=== PATIENT | female | born 1985 | race Caucasian/White ===

== ENCOUNTER → 2018-02-14 10:47 | Outpatient (CLI) | payer MEDICAID, SELFPAY ==
[2018-02-14 11:59] LABS: hCG Titer Quant., Serum 13473 mIU/mL (<9 non-preg)
== END ==
PROVIDERS: Referring Provider Obstetrics & Gynecology; Visit Provider Obstetrics & Gynecology
DX: N92.6 Irregular menstruation, unspecified (principal)
CPT/HCPCS: 36415; 84702

== ENCOUNTER → 2018-02-19 14:21 | Outpatient (CLI) | payer MEDICAID, SELFPAY ==
[2018-02-19 16:47] LABS: hCG Titer Quant., Serum 29822 mIU/mL (<9 non-preg)
--- OUTSIDE RECORDS SUMMARY | 2018-04-03 12:12 | XMS RPT_ITS ---
:1985 Author Organization OHIP Care Team Providers Name Role Phone Erma Delgado Attending Unavailable Erma Delgado Referring Unavailable Primay Care Physicia, No Primary Care Unavailable Erma Delgado Attending Unavailable Erma Delgado Referring Unavailable Primay Care Physicia, No Primary Care Unavailable Erma Delgado Attending Unavailable Primay Care Physicia, No Referring Unavailable Erma Delgado Attending Unavailable Erma Delgado Referring Unavailable Primay Care Physicia, No Primary Care Unavailable PROBLEMS PROBLEMS DATE TYPE CONDITION / CODE ATTENDING STATUS SOURCE 03/02/2018 Unknown Z34.90 - Sandy, Active [place] Encounter for [facility] normal , Repository unspecified, unspecified trimester / Z34.90(ICD-10) 03/02/2018 Unknown Z12.4 - Encounter Sandy, Active [place] for screening for [facility] neoplasm of Repository cervix / Z12.4(ICD-10) 03/02/2018 Unknown Z3A.08 - 8 weeks Sandy, Active [place] gestation of [facility] / Hospital Z3A.08(ICD-10) Repository 03/02/2018 Unknown Z34.81 - Navneetanthxander, Active [place] Encounter for [facility] supervision of Hospital other normal Repository , first trimester / Z34.81(ICD-10) 03/07/2018 Unknown N92.6 - Irregular Marcanthony, Active [place] menstruation, [facility] unspecified / Hospital N92.6(ICD-10) Repository PROCEDURES PROCEDURES No Procedure Records FoundRESULTS RESULTS CBC W/DIFF, AUTOMATED Collected: 03/02/2018 Status: F Source: [place] 1:32 PM [facility] REPOSITORY TYPE CODE TESTS RESULT OUT OF RANGE REFERENCE UNITS LAB L100.1000 4.4-11.0 K/mm3 Normal WBC 8.9 LAB L100.1200 4.2-5.4 M/mm3 Normal RBC 4.32 LAB L100.1300 12.0-15.0 g/dl Normal HGB 13.2 LAB L100.1400 37-47 % Normal HCT 38.6 LAB L100.1500 81-99 fL Normal MCV 89.4 LAB L100.1600 27.0-32.0 pg Normal MCH 30.6 LAB L100.1700 32-36 g/gl Normal MCHC 34.2 LAB L100.1810 11.6-14.6 % Normal RDW CV 11.8 LAB L100.1820 35.1-43.9 fl Normal RDW SD 38.6 LAB L100.1900 150-450 K/mm3 Normal PLT 226 LAB L100.2000 6.2-12.0 fl Normal MPV 10.0 LAB L100.2100 47-70 % High NEUT% 72.8 LAB L100.2200 19-41 % Normal LY% 19.1 LAB L100.2300 0-10 % Normal MONO% 6.7 LAB L100.2400 0-5 % Normal EO% 1.2 LAB L100.2500 0-1 % Normal BASO% 0.1 LAB L100.2550 0.0-0.9 % Normal IM GRAN % 0.100 Result Comment: IG% - Immature Granulocytes (promyelocytes, myelocytes and metamyelocytes) > 1% indicates that a LEFT SHIFT is Present. LAB L100.2620 2.0-7.7 X10 3/uL Normal Absolute Neut 6.5 LAB L100.2720 0.83-4.51 X10 3/ul Normal Absolute Lymph 1.70 Performed By: #### L100.0100 #### [facility] [address] [facility] [place], [address] TYPE AND SCREEN Collected: 03/02/2018 Status: F Source: [place] 1:32 PM [facility] REPOSITORY Order Comment: Reason for Type AND Screen/Red Cells: TYPE CODE TESTS RESULT OUT OF RANGE REFERENCE UNITS LAB B10.0800 A Normal BLOOD TYPE GEL POSITIVE LAB B100.4000 Normal Antibody NEGATIVE Screen Performed By: #### B101.7450 #### [facility] [address] [place], [address] RUBELLA IGG Collected: 03/02/2018 Status: F Source: [place] 1:32 PM [facility] REPOSITORY TYPE CODE TESTS RESULT OUT OF RANGE REFERENCE UNITS LAB L509.4000 IU/mL Normal Rubella IgG 14.3 Result Comment: Antibody results Interpretation of Immune Status < 5 IU/ml Presumed Non-immune 5 - < 10 IU/ml Equivocal > or = 10 IU/ml Presumed Immune Performed By: #### L509.4000, L3890.6005 #### [facility] [facility] [facility] [place], [address] HIV - [facility] Collected: 03/02/2018 Status: F Source: [place] 1:32 PM [facility] REPOSITORY TYPE CODE TESTS RESULT OUT OF RANGE REFERENCE UNITS LAB L3890.6005 Nonreactive Normal HIV - [facility] Non-Reactive Performed By: #### L509.4000, L3890.6005 #### [facility] [address] [facility] [facility] [place], [place], [id number] HEPATITIS B SURFACE Collected: 03/02/2018 Status: F Source: [place] AG 1:32 PM [facility] REPOSITORY TYPE CODE TESTS RESULT OUT OF RANGE REFERENCE UNITS LAB L3100.0400 Negative Normal HB Negative SURF AG Result Comment: Performed at: [address] [id number] Economics Consultant: Estevan Lopez PhD, Phone: [phone] Performed By: #### L3100.0390 #### [facility] (refer to report for specific site) refer to report for address and phone number RAPID PLASMIN REAGIN Collected: 03/02/2018 Status: F Source: ER[place] (RPR) 1:32 PM [facility] REPOSITORY TYPE CODE TESTS RESULT OUT OF REFERENCE UNITS RANGE LAB L700.5000 NONREACTIVE NONREACTIVE Normal RPR Performed By: #### L700.5000 #### [facility] [address] [place], [address] PROPERTY ADMINISTRATOR OFFICE VISIT Observed: 03/02/2018 Status: F Source: [place] REPORT 1:21 PM [facility] REPOSITORY [facility] Emergency Department 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 Required: No Is patient in pain?: No Allergies No Known Allergies Allergy (Verified 03/02/18 12:26) Medications loratadine 10 mg tablet 10 mg PO DAILY 03/02/18 [History Confirmed 03/02/18] vitamin,calcium,agabqoqb-mwpz-fgkme acid tablet 1 tab PO DAILY 03/02/18 [History Confirmed 03/02/18] valacyclovir 500 mg tablet 500 mg PO DAILY 03/02/18 [History Confirmed 03/02/18] Last Menstral Period: 01/01/18 Zika: Zika virus screening: Negative : No PFSH PFSH Social History number of children: 3 current occupational status: unemployed Smoking Status: Current some day smoker alcohol intake: never substance use type: does not use seatbelt use: always do you feel safe at home: Yes additional social history: [employer] H AND P Pregancy History 4 Elective abortions Hx Para 3 Spontaneous abortions Past Pregnancies Del. DatName GA/WeeksOutcome Route [facility] LgAnesthePAel LocaProviderFOB e ht en th ia tn 05/07/07Nia live birNSVD Female epidural th - ful l term HPI NOB-LMP unknown: Details: BAN GOMEZ is a 33 year old who presents for New OB visit. OB Visit Comments: crl 1.8 cm consistent with LMP fht 160 Menstrual History Last Menstral Period: 01/01/18 Reported LMP: definite Normal amount/duration: Yes On hormonal BC at conception: No Antepartum Record Genetic Screening: Congenital Heart Defect: Other, Neural Tube Defect: Other, Hemoglobinopathy Or Carrier: Other, Cystic Fibrosis: Other, Chromosome Abnormality: Other, Kilo-Sachs: Other, Hemophilia: Other, Intellectual Disability/Autism: Other, Recurrent Loss/Stillbirth: Other, Other Structural Defect: Other, Other Genetic Disease: Other, Maternal Metabolic Disorder: Other Infection History: Live with someone with TB or Exposed to TB: No, Patient or Partner has history of Genital Herpes: No, Rash or Viral illness since last mentrual period: No, Prior GBS-Infected child: No, History of STD: No, HIV Infection: No, History of Hepatitis: No, Recent travel outside of [place]: No, Concern for Hep exposure: No, Varicella immune: Yes Medical History Medical History: Positive: Depression/ depression (mild meds- took with the first two), Negative: Diabetes, Hypertension, Heart disease, Auto- immune disorder, Kidney disease/UTI, Neurologic/epilepsy, Psychiatric, Hepatitis/liver disease, Varicosities/phlebitis, Thyroid dysfunction, Trauma/domestic violence, History of blood transfusions, D (Rh) Sensitized, Pulmonary (e.g.,TB,Asthma), Seasonal allergies, Drug/latex allergies/reactions, Breast, Potato Chip Processing Supervisor surgery, Operations/hospitalizations, Anesthetic complications, History of abnormal pap, Uterine anomaly/marva, Infertility, Anti-retroviral treatment, Relevant family history, Other ACOG First Trimester First Trimester: Desire for , Alcohol, Tobacco Cessation, Illicit/Recreational Drug/Substance Use, Intimate Partner Violence, Barriers to care, Unstable Housing, Communication Barriers, Environmental/Work Hazards, Anticipated Course of Care, Nurtrition and weight gain, Toxoplasmosis Precations, Use of Any medications, Sexual activity, Exercise, Dental Care, Sauna/Hot tub use, Seat Belt use, Childbirth classes/Hospital facilities, , Travel, Indications for US and Screening for Aneuploidy ROS Const Denies fever(s), Reports system reviewed and no additional complaints, except as docu, Reports fatigue Eyes Reports system reviewed and no additional complaints, except as docu ENT Reports system reviewed and no additional complaints, except as docu Card Denies chest pain, Denies shortness of breath Resp Reports system reviewed and no additional complaints, except as docu, Denies shortness of breath, Denies cough GI Reports nausea, Denies abdominal pain Reports system reviewed and no additional complaints, except as docu Musc Reports system reviewed and no additional complaints, except as docu Skin/Breast Reports system reviewed and no additional complaints, except as docu Neuro Yes system reviewed and no additional complaints, except as docu Psych Reports system reviewed and no additional complaints, except as docu Endo Reports fatigue, Reports system reviewed and no additional complaints, except as docu Exam Const General: healthy appearing, comfortable, no acute distress Orientation: alert [facility] Head: normal to inspection, atraumatic, normocephalic Ears: external ears normal, hearing grossly normal bilaterally Nose: nares normal, external nose normal Mouth: oral mucosae normal Teeth and gingiva: dentition normal Eyes General: appearance normal, both eyes and all related structures Neck Neck: no lymphadenopathy, supple, normal visual inspection Thyroid: thyroid normal Chest Chest palpation AND inspection: normal inspection of the chest Breast inspection: normal inspection of the breasts, normal inspection of the axillae Breast palpation: normal palpation of the breasts, normal palpation of the axillae Resp Effort AND Inspection: normal respiratory effort GI Inspection: normal to inspection Palpation: soft, no hepatosplenomegaly General: bladder normal to palpation External Female Exam: normal external appearance, normal appearance of the urethra Urethra: normal appearance of the urethra Speculum Exam - Vagina: normal appearance of the vagina, normal vaginal discharge Speculum Exam - Cervix: normal appearance of the cervix Bimanual Exam- Vagina AND Uterus: bladder normal to palpation, normal bimanual exam, uterus non-tender, other Bimanual Exam- Adnexa, other: adnexae non-tender Skin General: no rashes or lesions noted Neuro Motor: muscle tone normal throughout, no movement abnormalities noted Extrem General: normal to inspection, full ROM Assessment AND Plan Problems 1. 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 2. Encounter for supervision of other normal in first trimester Z34.81 KALLIE 10/08/18 Mary Estrella, Oren Rell 3. Pt. goes by Ashutosh Christianson Patient oriented to practice and discussed care expectations and screenings. ACOG book offered to patient. Discussed routine and specially indicated labs if needed- patient consents to testing. see problem list details for plan information. Optional screening including carrier screenings, neural tube defect screening, sequential screening, and NIPT screening offered to patient and patient chose: declined Orders Orders: Supplemental Info ACOG book given and patient encouraged to read about nutrition, exercise, weight gain, and food avoidance in . Coding Level of Care Code OB Routine Diagnoses 8 weeks gestation of Z3A.08 Weeks of gestation: 8 weeks Encounter for supervision of other normal in first trimester Z34.81 Normal : other normal Trimester: first trimester Pt. goes by Ashutosh 03/02/18 1321 <Electronically signed by Erma Delgado MD> Date Erma Delgado MD Cosigner Signature: Date (if applicable) CC: CT/NG WCH BY PCR Collected: 03/02/2018 Status: F Source: ER[place] 12:00 PM [facility] REPOSITORY TYPE CODE TESTS RESULT OUT OF RANGE REFERENCE UNITS LAB L8200.2100 Negative Normal Chlam Negative Trac PCR LAB L8200.2200 Negative Normal NG by Negative PCR Performed By: #### L8200.2000 #### [facility] [address] [place], [address] Observed: 03/02/2018 Status: F Source: ERICK CULTURE, URINE 12:00 PM [facility] REPOSITORY Urine Culture Below infection level. ORGANISM 1: Mixed Gram Positive Organisms Badger Count 1000-10,000 Performed By: #### M100.0650 #### [facility] [address] [place], [address] PAP IG HPV APTIMA Collected: 03/02/2018 Status: F Source: ERICK 16/18,45 12:00 PM [facility] REPOSITORY Order Comment: CYTOLOGY INFORMATION: - CLINICAL INFORMATION: ANNUAL - DATE LMP/MENOPAUSE: N/A - COLLECTION VIAL: Thin Prep Vial - DIRECTOR WORKFORCE MANAGEMENT SOURCE: CERVICAL - COLLECTION TECHNIQUE: CX BROOM ONLY Specimen Comment: [id number] Specimen Comment: No. of containers..01 ThinPrep Vial TYPE CODE TESTS RESULT OUT OF RANGE REFERENCE UNITS LAB L7400.0800 . Normal DIAGN Comment Result Comment: NEGATIVE FOR INTRAEPITHELIAL LESION AND MALIGNANCY. THIS SPECIMEN WAS RESCREENED PART OF OUR TAPERING MACHINE OPERATOR PROGRAM. LAB L7400.0900 . Normal ADEQ Comment Result Comment: Satisfactory for evaluation. No endocervical component is identified. LAB L7400.1400 . Normal PERFORM Comment Result Comment: Luda Dang, Supervisor Reclamation (ASCP) LAB L7400.1500 . Normal QC Comment REV Result Comment: Leslee Finch, Supervisory Supervisor Reclamation (ASCP) LAB L7400.2575 . Normal TEST METHOD Comment Result Comment: This liquid based ThinPrep(R) pap test was screened with the use of an image guided system. LAB L7400.2600 . Normal . COMM LAB L7400.2700 . Normal PAPSMR Comment Result Comment: The Pap smear is a screening test designed to aid in the detection of premalignant and malignant conditions of the uterine cervix. It is not a diagnostic procedure and should not be used as the sole means of detecting cervical cancer. Both false-positive and false-negative reports do occur. LAB L7400.2760 Negative Normal HPV APTIMA, Negative HR Result Comment: This test detects fourteen high-risk HPV types (16/18/31/33/35/39/45/ 51/52/56/58/59/66/68) without differentiation. Performed at: [address] [id number] Economics Consultant: Jenn Prabhakar MD, Phone: [phone] Performed at: = - [facility] [address] [id number] Economics Consultant: Jenn Prabhakar MD, Phone: [phone] Performed By: #### L7400.0280 #### [facility] (refer to report for specific site) refer to report for address and phone number HCG TITER QUANT., Collected: 02/19/2018 Status: F Source: [place] SERUM 3:35 PM [facility] REPOSITORY TYPE CODE TESTS RESULT OUT OF RANGE REFERENCE UNITS LAB L700.8000 <9 non-preg mIU/mL High HCG 31979 QUANT. Performed By: #### L700.8000 #### [facility] [address] [place], [place], [address] HCG TITER QUANT., Collected: 2018 Status: F Source: [place] SERUM 10:53 AM [facility] REPOSITORY TYPE CODE TESTS RESULT OUT OF RANGE REFERENCE UNITS LAB L700.8000 <9 non-preg mIU/mL High HCG 37783 QUANT. Performed By: #### L700.8000 #### [facility] [address] [place], [place], [address] OBSOLETE Observed: 01/04/2018 Status: COMPLETED Source: [place] 12:00 AM [facility] REPOSITORY Refill (NOLVIABGRN) BAN GOMEZ ([id number]) 1985 F MYA Date Time Provider Department 01/04/18 JB MURRAY (GA) QIAN During your visit today, we recorded the following information about you: Allergies As of Date: 01/04/2018 Noted Allergy Reaction PENICILLIN 05/09/2016 8 - GI Upset Date Reviewed: 02/02/2017 Reviewed by: Shelia Estrella Ma - Fully Assessed Reason for Visit: Refill Request [94] Prescriptions as of 01/04/2018 Sig: VALACYCLOVIR 500 MG TABLET TAKE 1 TABLET BY MOUTH ONCE D* BREAST PUMP Dispense 1 dual electric kimi* PNV #[id number]* Take 1 tablet by mouth once d* VALACYCLOVIR 500 MG TABLET Take 500 mg by mouth once iggy* Problem List As Of Date 01/04/2018 Noted Resolved Supervision of repeat term [Z34.90] INVALID FOR* care, subsequent [Z34.80] INVALID FOR* Encounter Status:Closed by VALENTINO HO RN on 01/04/18 OFFICE VISIT (URGENT Observed: 11/12/2017 Status: UNK Source: [facility]) 1:43 PM [facility]OSPITALS REPOSITORY Chief Complaint Rash History of Present Illness 32-year-old female presents for evaluation of poison zbigniew reaction all over. Patient states that she has had the rash for the last 5 days. It continues to spread. She hasn't on her arms as well as her le gs. States it is very itchy. Denies any fever or chills. She does state that she is breast-feeding a 1-year-old intermittently. ROS: 7 body systems reviewed and otherwise negative unless dictated in the history of present illness. Review of Systems Constitutional: as noted in HPI. Active Problems Benign essential hypertension (401.1) (I10) Past Medical History History of Acute sinusitis (461.9) (J01.90) History of Acute upper respiratory infection (465.9) (J06.9) History of Contact dermatitis due to poison zbigniew (692.6) (L23.7) History of Encounter for gynecological examination without abnormal finding (V72.31) (Z01.419) 2007 History Of 1 Previous Pregnancies (V61.5) 1 live History of allergic rhinitis (V12.69) (Z87.09) History of fatigue (V13.89) (Z87.898) History of headache (V13.89) (Z87.898) History of hypertension (V12.59) (Z86.79) well controlled History of sprain of ankle (V13.59) (Z87.828) Surgical History Denied: History of Surgery Family History Family history of Hypertension (V17.49) Family history of Hypertension (V17.49) Social History Alcohol Use (History) 1-2 per week Caffeine Use 1-2 per day Marital History - Currently Smoker, current status unknown (305.1) (F17.200) social 1 per day Allergies Penicillins Abdominal pain; Vomiting; Recorded By: Deshawn Mejia; 02/03/2012 11:56:51 AM Current Meds Yue 0.35 MG Oral Tablet; Therapy: 30Jun2017 to Recorded Dispense: 28 Days ; #:28 TABS; Refill: 0; TWYLA = N; Record; Last Updated By: Juli Izaguirre; 11/12/2017 1:22:27 PM Cetirizine HCl - 10 MG Oral Tablet; Therapy: 25Aug2017 to Recorded Dispense: 30 Days ; #:30 TABS; Refill: 0; TWYLA = N; Record; Last Updated By: Juli Izaguirre; 11/12/2017 1:22:27 PM Fluconazole 150 MG Oral Tablet; Therapy: 30Jul2017 to Recorded Dispense: 1 Days ; #:1 TABS; Refill: 0; TWYLA = N; Record; Last Updated By: Juli Izaguirre; 11/12/2017 1:22:27 PM Fluticasone Propionate 50 MCG/ACT Nasal Suspension; Therapy: 25Aug2017 to Recorded Dispense: 30 Days ; #:16 SUSP; Refill: 0; TWYLA = N; Record; Last Updated By: Juli Izaguirre; 11/12/2017 1:22:27 PM ValACYclovir HCl - 500 MG Oral Tablet; Therapy: 02Jul2017 to Recorded Dispense: 30 Days ; #:30 TABS; Refill: 0; TWYLA = N; Record; Last Updated By: Juli Izaguirre; 11/12/2017 1:22:27 PM Vitals Vital Signs Recorded: 35Eon4326 12:44PM Yczytdkmmdi48.3 F Heart Rate64 Uknsbkoxywe59 Tcvkxkgr580 Vcysfvtls18 Height5 ft 6 in Miaqtu872 lb BMI Ocsrahclaa33.86 BSA Calculated1.93 O2 Uuvczkebvo34 Pain Scale2 Physical Exam Constitutional: vital signs reviewed. Well developed, well nourished. patient alert and patient without distress. Gen: Alert and oriented, not acutely ill or toxic appearing HEENT: Head is NC and AT. No facial asymmetry.Voice clear Neck: supple Heart: regular rate and rhythm without murmur Lungs: clear to auscultation and respirations are unlabored Skin: Multiple maculopapular lesions over the arms and legs and neck. Small vesicles noted. No necrosis, petechiae, abscess or streaking present. Neuro: ambulatory without assist. Mentation clear. Answering questions quickly and appropriately. Diagnoses/Problems Allergic contact dermatitis, unspecified trigger (692.9) (L23.9) Orders Allergic contact dermatitis, unspecified trigger Start: PredniSONE 10 MG Oral Tablet; TAKE 4 TABLET Daily begin 4 tabs QD x3 days, then 3 tabs QDx 3d, then 2 tabs QD x 3d, then 1 tab QD x 3d, then 1/2 tab QD x 3days Rx By: Juli Izaguirre; Dispense: 15 Days ; #:32 Tablet; Refill: 0;For: Allergic contact dermatitis, unspecified trigger; TWYLA = N; Verified Transmission to [id number]; Last Updated By: Definition 6; 11/12/2017 1:24:08 PM Provider Impressions 32-year-old female with a rash consistent with poison zbigniew. No evidence of secondary bacterial infection. No contraindication to steroid. Oral prednisone taper recommended. Instructions for use reviewed. Patient Discussion/Summary Today you were seen by Dr Izaguirre Please see your primary care physician in 3 days. Begin oral prednisone and take with food. May use topical hydrocortisone or calamine lotion if needed. May use jxpg-cav-rwzquyr Benadryl and/or a nonsedating antihistamine per package instructions if needed. Please monitor for signs of secondary infection, such as increasing redness, fever, drainage. If present, please be reevaluated. If at any time you develop chest pain, shortness of breath or difficulty swallowing or talking..... Please go to the nearest emergency department for evaluation. End of Encounter Meds Yue 0.35 MG Oral Tablet; Therapy: 30Jun2017 to Recorded Cetirizine HCl - 10 MG Oral Tablet; Therapy: 25Aug2017 to Recorded Fluconazole 150 MG Oral Tablet; Therapy: 30Jul2017 to Recorded Fluticasone Propionate 50 MCG/ACT Nasal Suspension; Therapy: 25Aug2017 to Recorded PredniSONE 10 MG Oral Tablet; TAKE 4 TABLET Daily begin 4 tabs QD x3 days, then 3 tabs QDx 3d, then 2 tabs QD x 3d, then 1 tab QD x 3d, then 1/2 tab QD x 3days; Therapy: 66Ohi5281 to (Complete:27Nov2017) Requested for: 32Hqt4584; Last Rx:[id number] Ordered ValACYclovir HCl - 500 MG Oral Tablet; Therapy: 02Jul2017 to Recorded Signatures Electronically signed by : Juli Izaguirre DO; Nov 12 2017 1:43PM EST (Author) ALLERGIES ALLERGIES DATE TYPE / CODE NAME / CODE REACTION SEVERITY SOURCE 03/02/2018 Drug No Known Unknown [facility] [facility] Allergy/4160 Allergies/F00 Hospital 92236(SNOMED [id number](RXNOR Repository CT) M) ENCOUNTERS ENCOUNTERS ADMIT/DISCHARGE ACCOUNT ADMITTING ENCOUNTER LOCATION SOURCE NUMBER CLASS 03/02/2018 [id number] Ambulatory [place] [facility] ing:LAB Repository 03/02/2018/ [id number] Ambulatory BMSBuilding:B [place] 8 2 [facility] Hospital Repository 02/19/2018 [id number] Ambulatory [place] 8 [facility] ing:LAB Repository 2018 [id number] Ambulatory [place] 6 [facility] ing:LAB Repository PAYERS PAYERS ENCOUNTER GUARANTOR PAYER SUBSCRIBER SOURCE 03/02/2018 BAN [place]e Primary BAN Rowe [place] [id number] Insurance[facility]P [facility] [place]: [id number] [id number] Repository [address]Ugh: [phone]) Date:2018-03-02P O [phone] () [address]ATTN: [place] [address]MQ: 03/02/2018 Secondary NOT GIVENUNK [place] Insurance:SELF PAY [facility] Number: Effective Repository Date:2018-03-02 03/02/2018 BAN Rowe Primary BAN Rowe [place] [id number] [facility] Number: [id number] [id number] Repository [address]Tfo: ([phone]) Date:2018-02-20P O [phone] () [address]ATTN: [place] [address]QS: 03/02/2018 Secondary NOT GIVENUNK [place] Insurance:SELF [facility] Hospital Number: Effective Repository Date:2018-03-02 02/19/2018 BAN LEMA Primary BAN Suarez [id number] Insurance:CARESOURCEP SULLIVANDOB: Community [address] Number: [id number] [id number] Repository [address]Mgf: [phone]) Date:2018-02-16P O [phone] () [address]ATTN: [place] [address]BT: 02/19/2018 Secondary NOT GIVENUNK Erick Insurance:SELF PAY [facility] Number: Effective Repository Date:2018-02-16 2018 BAN LEMA Primary BAN ASHUTOSH Suarez [id number] Insurance:CARESOURCEP SULLIVANDOB: Community [address] Number: [id number], [place] [id number] Repository [address]Zcu: [phone]) Date:2018-02-13P O [phone] () [address]ATTN: [place] [address]DS: 2018 Secondary NOT GIVENUNK Erick Insurance:SELF PAY [facility] Number: Effective Repository Date:2018-02-13
== END ==
PROVIDERS: Nurse Practitioner Women's Health; Referring Provider Obstetrics & Gynecology; Visit Provider Obstetrics & Gynecology
DX: Z34.90 Encounter for supervision of normal pregnancy, unspecified, unspecified trimester (principal)
CPT/HCPCS: 36415; 84702

== ENCOUNTER → 2018-03-02 13:24 | Outpatient (CLI) | payer MEDICAID, SELFPAY ==
[2018-03-02 12:23] VITALS: BMI 31.6
[2018-03-02 14:09] LABS: Absolute Neutrophil Count 6.5 X10^3/uL (2.0-7.7); Basophil# 0.01 X10^3/uL; Basophil% 0.1 % (0-1); Eosinophil# 0.11 X10^3/uL; Eosinophils% 1.2 % (0-5); Hematocrit 38.6 % (37-47); Hemoglobin 13.2 g/dl (12.0-15.0); Lymphocyte % 19.1 % (19-41); Mean Corp Hgb Conc 34.2 g/gl (32-36); Mean Corpuscular Hgb 30.6 pg (27.0-32.0); Mean Corpuscular Volume 89.4 fL (81-99); Monocyte% 6.7 % (0-10); Neutrophil # 6.47 X10^3/uL (2.7-7.7); Neutrophil % 72.8 % (47-70); Platelet Count 226 K/mm3 (150-450); RBC Distribution Width CV 11.8 % (11.6-14.6); RBC Distribution Width SD 38.6 fl (35.1-43.9); Red Blood Count 4.32 M/mm3 (4.2-5.4); White Blood Count 8.9 K/mm3 (4.4-11.0)
[2018-03-02 14:10] LABS: POSITIVE COUNT NO; POSITIVE DIFFERENTIAL NO; POSITIVE MORPHOLOGY NO
[2018-03-02 16:57] LABS: HIV - WCH Non-Reactive (Nonreactive); Rubella IgG 14.3 IU/mL
[2018-03-02 19:55] LABS: Chlamydia Trachomatis by PCR Negative (Negative); Neisserai gonorrhoeae by PCR Negative (Negative); Probe Check PASS; Sample Adequacy Control PASS; Specimen Processing Control PASS
[2018-03-04 09:56] LABS: HEPATITIS B SURFACE AG Negative (Negative)
[2018-03-08 07:37] LABS: HPV APTIMA, High Risk Negative (Negative)
[2018-03-09 04:53] LABS: Rapid Plasmin Reagin (RPR) NONREACTIVE (NONREACTIVE)
== END ==
PROVIDERS: Referring Provider Obstetrics & Gynecology; Visit Provider Obstetrics & Gynecology
DX: Z34.90 Encounter for supervision of normal pregnancy, unspecified, unspecified trimester (principal); Z12.4 Encounter for screening for malignant neoplasm of cervix
CPT/HCPCS: 36415; 85025; 86592; 86703; 86762; 86850; 86900; 87086; 87088; 87340; 87491; 87591; 87624; 88175; G0145

== ENCOUNTER → 2018-05-03 15:50 | Outpatient (CLI) | payer MEDICAID, SELFPAY ==
[2018-05-03 10:12] VITALS: BMI 31.6
[2018-05-03 16:45] LABS: Protein, Urine (Random) 14.2 mg/dL (<11.9); Protein:Creat Ratio 53 mg/g CRE (0-200)
== END ==
PROVIDERS: Referring Provider Nurse Practitioner Women's Health; Visit Provider Nurse Practitioner Women's Health
DX: O16.2 Unspecified maternal hypertension, second trimester (principal); Z3A.00 Weeks of gestation of pregnancy not specified
CPT/HCPCS: 82570; 84156

== ENCOUNTER → 2018-05-15 11:48 | Outpatient (CLI) | payer MEDICAID, SELFPAY ==
[2018-05-15 11:38] VITALS: BMI 32.8
[2018-05-15 12:21] LABS: Protein, Urine (Random) 9.5 mg/dL (<11.9); Protein:Creat Ratio 76 mg/g CRE (0-200)
[2018-05-15 12:44] LABS: Absolute Lymphocyte Count 1.39 X10^3/ul (0.83-4.51); Absolute Neutrophil Count 6.6 X10^3/uL (2.0-7.7); Basophil# 0.01 X10^3/uL; Basophil% 0.1 % (0-1); Eosinophil# 0.06 X10^3/uL; Eosinophils% 0.7 % (0-5); Hematocrit 36.8 % (37-47); Hemoglobin 12.6 g/dl (12.0-15.0); Lymphocyte # 1.39 X10^3/ul (4.0); Mean Corp Hgb Conc 34.2 g/gl (32-36); Mean Corpuscular Hgb 31.3 pg (27.0-32.0); Mean Corpuscular Volume 91.5 fL (81-99); Mean Platelet Vol. 10.6 fl (6.2-12.0); Monocyte# 0.62 X10^3/uL; Monocyte% 7.1 % (0-10); Neutrophil % 75.8 % (47-70); Platelet Count 162 K/mm3 (150-450); RBC Distribution Width SD 42.6 fl (35.1-43.9); Red Blood Count 4.02 M/mm3 (4.2-5.4); White Blood Count 8.7 K/mm3 (4.4-11.0)
[2018-05-15 12:46] LABS: POSITIVE COUNT NO; POSITIVE DIFFERENTIAL NO; POSITIVE MORPHOLOGY NO
[2018-05-15 13:20] LABS: ALB/GLOB Ratio 0.9 RATIO (0.9-2.4); AST(SGOT) 15 U/L (15-37); Alanine Aminotransfer ALT/SGPT 19 U/L (13-56); Alkaline Phosphatase 51 U/L (45-117); Anion Gap 10 (5-15); BUN 9 mg/dL (7-18); BUN/Creat Ratio 17.2 RATIO (10-20); Calcium,Total 8.5 mg/dL (8.5-10.1); Chloride 107 mmol/L (98-107); Creatinine, Serum 0.52 mg/dL (0.55-1.02); EST Glomerular Filtration Rate 142 mL/min (>60); Est Glom Filt Rate - Afr Amer 172 mL/min (>60); Globulin 3.5 g/dL (2.2-4.2); Glucose 87 mg/dL (74-106); LDH 177 U/L (84-246); Potassium 3.9 mmol/L (3.5-5.1); Protein, Total 6.5 g/dL (6.4-8.2); Sodium Level 140 mmol/L (136-145); Uric Acid 3.6 mg/dL (2.6-6.0)
== END ==
PROVIDERS: Nurse Practitioner Women's Health; Referring Provider Obstetrics & Gynecology; Visit Provider Obstetrics & Gynecology
DX: Z34.90 Encounter for supervision of normal pregnancy, unspecified, unspecified trimester (principal); O16.2 Unspecified maternal hypertension, second trimester; Z3A.00 Weeks of gestation of pregnancy not specified
CPT/HCPCS: 36415; 80053; 82570; 83615; 84156; 84550; 85025

== ENCOUNTER → 2018-07-20 | Outpatient (CLI) | payer MEDICAID, SELFPAY ==
[2018-07-20 11:03] VITALS: BMI 32.8
[2018-07-20 12:55] LABS: Absolute Lymphocyte Count 1.44 X10^3/ul (0.83-4.51); Absolute Neutrophil Count 6.5 X10^3/uL (2.0-7.7); Basophil# 0.01 X10^3/uL; Basophil% 0.1 % (0-1); Eosinophils% 1.1 % (0-5); Hematocrit 35.7 % (37-47); Hemoglobin 12.2 g/dl (12.0-15.0); Lymphocyte # 1.44 X10^3/ul (4.0); Lymphocyte % 16.3 % (19-41); Mean Corp Hgb Conc 34.2 g/gl (32-36); Mean Corpuscular Hgb 31.3 pg (27.0-32.0); Mean Corpuscular Volume 91.5 fL (81-99); Mean Platelet Vol. 10.7 fl (6.2-12.0); Monocyte# 0.73 X10^3/uL; Monocyte% 8.3 % (0-10); Neutrophil # 6.49 X10^3/uL (2.7-7.7); Neutrophil % 73.6 % (47-70); Platelet Count 161 K/mm3 (150-450); RBC Distribution Width CV 12.9 % (11.6-14.6); RBC Distribution Width SD 41.8 fl (35.1-43.9); White Blood Count 8.8 K/mm3 (4.4-11.0)
[2018-07-20 12:57] LABS: POSITIVE COUNT NO; POSITIVE DIFFERENTIAL NO; POSITIVE MORPHOLOGY NO
[2018-07-20 13:16] LABS: Glucose Challenge Gest 1H 50g 78 mg/dL (70-140)
== END | disposition home or self-care (01) ==
LOC: LAB 11:21
PROVIDERS: Nurse Practitioner Women's Health; Referring Provider Obstetrics & Gynecology; Visit Provider Obstetrics & Gynecology
DX: Z34.90 Encounter for supervision of normal pregnancy, unspecified, unspecified trimester (principal)
CPT/HCPCS: 36415; 82950; 85025; 86850; 86900

== ENCOUNTER → 2018-07-30 | Outpatient (CLI) | payer MEDICAID, SELFPAY ==
[2018-07-30 16:31] VITALS: BMI 33.5
[2018-07-30 17:21] LABS: Absolute Lymphocyte Count 0.97 X10^3/ul (0.83-4.51); Absolute Neutrophil Count 6.8 X10^3/uL (2.0-7.7); Basophil# 0.01 X10^3/uL; Basophil% 0.1 % (0-1); Eosinophil# 0.06 X10^3/uL; Eosinophils% 0.7 % (0-5); Hematocrit 36.2 % (37-47); Hemoglobin 12.5 g/dl (12.0-15.0); Lymphocyte # 0.97 X10^3/ul (4.0); Lymphocyte % 11.4 % (19-41); Mean Corp Hgb Conc 34.5 g/gl (32-36); Mean Corpuscular Hgb 31.4 pg (27.0-32.0); Mean Platelet Vol. 10.4 fl (6.2-12.0); Monocyte# 0.69 X10^3/uL; Monocyte% 8.1 % (0-10); Neutrophil # 6.78 X10^3/uL (2.7-7.7); Neutrophil % 79.5 % (47-70); POSITIVE COUNT NO; POSITIVE DIFFERENTIAL NO; POSITIVE MORPHOLOGY NO; Platelet Count 133 K/mm3 (150-450); RBC Distribution Width CV 12.9 % (11.6-14.6); RBC Distribution Width SD 42.3 fl (35.1-43.9); Red Blood Count 3.98 M/mm3 (4.2-5.4); White Blood Count 8.5 K/mm3 (4.4-11.0)
[2018-07-30 17:37] LABS: ALB/GLOB Ratio 0.9 RATIO (0.9-2.4); AST(SGOT) 16 U/L (15-37); Alanine Aminotransfer ALT/SGPT 21 U/L (13-56); Alkaline Phosphatase 72 U/L (45-117); Anion Gap 4 (5-15); BUN 6 mg/dL (7-18); BUN/Creat Ratio 11.4 RATIO (10-20); Calcium,Total 8.3 mg/dL (8.5-10.1); Chloride 107 mmol/L (98-107); Creatinine, Serum 0.52 mg/dL (0.55-1.02); EST Glomerular Filtration Rate 142 mL/min (>60); Est Glom Filt Rate - Afr Amer 171 mL/min (>60); Globulin 3.3 g/dL (2.2-4.2); Glucose 99 mg/dL (74-106); Lipase 82 U/L (73-393); Potassium 3.7 mmol/L (3.5-5.1); Protein, Total 6.3 g/dL (6.4-8.2); Sodium Level 136 mmol/L (136-145)
[2018-07-31 10:37] LABS: Protein, Urine (Random) 12.7 mg/dL (<11.9); Protein:Creat Ratio 85 mg/g CRE (0-200)
== END | disposition home or self-care (01) ==
PROVIDERS: Referring Provider Obstetrics & Gynecology; Visit Provider Obstetrics & Gynecology
DX: R10.13 Epigastric pain (principal)
CPT/HCPCS: 36415; 80053; 82570; 83690; 84156; 85025

== ENCOUNTER → 2018-07-31 | Outpatient (CLI) | payer MEDICAID, SELFPAY ==
[2018-07-30 16:31] VITALS: BMI 33.5
[2018-07-30 17:49] VITALS: BMI 32.8
--- NOTE | 2018-07-31 07:58 | US_ITS ---
STUDY: ABDOMINAL ULTRASOUND REASON FOR EXAM: Female, 33 years old. Right upper quadrant and epigastric pain. TECHNIQUE: Transabdominal ultrasound was performed with real-time and static sanchez scale imaging. TECHNICAL QUALITY: Adequate. COMPARISON: None. FINDINGS: Liver: The liver measures 16.5 cm. There is normal echogenicity of the liver. The bile ducts are within normal limits. There is hepatic color flow. The direction of portal flow is hepatopetal. There is no demonstrated mass lesion. Portal vein measurement: Gallbladder: Normal distended gallbladder. The gallbladder wall measures 2.8 mm. There is a negative sonographic Arteaga's sign. There is no pericholecystic fluid. There are no gallstones. Common Bile Duct (C.B.D.): The common bile duct measures 3.7 mm. Pancreas: Normal size of the head, body and tail of the pancreas. There is normal echogenicity of the pancreas. There is no demonstrated pancreatic mass or cyst. Spleen: There is splenomegaly. The spleen measures 13.9 cm x 5.2 cm x 4.5 cm. Right Kidney: Normal size of the right kidney. The right kidney measures 11.7 cm x 5.5 cm x 5.5 cm. Normal renal cortex. The right cortex measures 1.6 cm. There is no demonstrated renal mass or cyst. There is no right hydronephrosis. Left Kidney: Normal size of the left kidney. The left kidney measures 11.9 cm x 5.3 cm x 5.1 cm. Normal renal cortex. The left cortex measures 2.0 cm. There is no demonstrated renal mass or cyst. There is no left hydronephrosis. Aorta: Unremarkable. I.V.C.: The IVC is patent. There is no ascites. US/Abdomen Complete IMPRESSION: Mild splenomegaly. Electronically Signed: Harjit Arellano, at 15:38 EDT , Service support ,
[2018-07-31 10:37] LABS: Basophil# 0.01 X10^3/uL; Basophil% 0.1 % (0-1); Eosinophil# 0.08 X10^3/uL; Eosinophils% 1.2 % (0-5); Hematocrit 36.7 % (37-47); Hemoglobin 12.7 g/dl (12.0-15.0); Lymphocyte % 14.7 % (19-41); Mean Corp Hgb Conc 34.6 g/gl (32-36); Mean Corpuscular Hgb 31.5 pg (27.0-32.0); Mean Corpuscular Volume 91.1 fL (81-99); Mean Platelet Vol. 11.1 fl (6.2-12.0); Monocyte# 0.66 X10^3/uL; Monocyte% 9.7 % (0-10); Neutrophil # 5.02 X10^3/uL (2.7-7.7); Platelet Count 152 K/mm3 (150-450); RBC Distribution Width CV 12.8 % (11.6-14.6); RBC Distribution Width SD 41.9 fl (35.1-43.9); Red Blood Count 4.03 M/mm3 (4.2-5.4); White Blood Count 6.8 K/mm3 (4.4-11.0)
[2018-07-31 10:43] LABS: POSITIVE COUNT NO; POSITIVE DIFFERENTIAL NO; POSITIVE MORPHOLOGY NO
[2018-07-31 11:00] LABS: ALB/GLOB Ratio 0.8 RATIO (0.9-2.4); AST(SGOT) 21 U/L (15-37); Alanine Aminotransfer ALT/SGPT 24 U/L (13-56); Albumin, Serum 2.9 g/dL (3.2-5.0); Alkaline Phosphatase 71 U/L (45-117); Anion Gap 10 (5-15); BUN 7 mg/dL (7-18); BUN/Creat Ratio 11.3 RATIO (10-20); Calcium,Total 8.7 mg/dL (8.5-10.1); Chloride 106 mmol/L (98-107); Creatinine, Serum 0.62 mg/dL (0.55-1.02); EST Glomerular Filtration Rate 117 mL/min (>60); Est Glom Filt Rate - Afr Amer 142 mL/min (>60); Globulin 3.6 g/dL (2.2-4.2); Glucose 104 mg/dL (74-106); Potassium 4.2 mmol/L (3.5-5.1); Protein, Total 6.5 g/dL (6.4-8.2); Sodium Level 141 mmol/L (136-145)
== END | disposition home or self-care (01) ==
PROVIDERS: Referring Provider Obstetrics & Gynecology; Visit Provider Obstetrics & Gynecology
DX: R10.13 Epigastric pain (principal)
CPT/HCPCS: 36415; 76700; 80053; 85025

== ENCOUNTER → 2018-08-14 | Outpatient (CLI) | payer MEDICAID, SELFPAY ==
[2018-06-29 09:55] VITALS: BMI 32.8
[2018-08-03 09:43] VITALS: BMI 32.9
--- NOTE | 2018-08-14 08:04 | US_ITS ---
STUDY: SECOND AND THIRD TRIMESTER OBSTETRICAL ULTRASOUND - LIMITED REASON FOR EXAM: Female, 33 years old. Routine survey. LMP: January 01, 2018. PRIOR ULTRASOUND: None. TECHNIQUE: Transabdominal TECHNICAL QUALITY: Adequate. FINDINGS: There is a single intrauterine fetus. The fetus is in a cephalic presentation. There is demonstrated cardiac activity with a heart rate of 136 bpm. There is a normal amniotic fluid volume. The largest amniotic fluid pocket measures 4.2 cm. The amniotic fluid index (MARISELA) is 11.5 cm. The placenta is anterior in location and is not low lying. There are Grade 1 placental changes. The cervix measures 3.7 cm in length. BIOMETRY: BPD: 7.88 cm: 31 weeks, 5 days HC: 30.32 cm: 33 weeks, 5 days AC: 28.51 cm: 32 weeks, 4 days FL: 6.3 cm: 32 weeks, 5 days Age by LMP: 32 weeks, 1 days. KALLIE by LMP: October 08, 2018. age by current US: 32 weeks, 5 days. KALLIE by current US: October 04, 2018. Estimated weight: 2006 grams, +/- 293 grams, 54 percentile. US/OB Limited With Biometrics IMPRESSION: Single live intrauterine gestation with a mean gestational age of 32 weeks and 5 days. Electronically Signed: Harjit Arellano, at 14:37 EDT , Service support ,
== END | disposition home or self-care (01) ==
LOC: OPUS 08:03
PROVIDERS: PCP Internal Medicine; Referring Provider Obstetrics & Gynecology; Visit Provider Obstetrics & Gynecology
DX: O10.919 Unspecified pre-existing hypertension complicating pregnancy, unspecified trimester (principal); Z3A.00 Weeks of gestation of pregnancy not specified
CPT/HCPCS: 76816

== ENCOUNTER → 2018-08-22 | Outpatient (CLI) | payer MEDICAID, SELFPAY ==
[2018-08-17 11:27] VITALS: BMI 33.5
--- NOTE | 2018-08-22 13:54 | US_ITS ---
STUDY: SECOND AND THIRD TRIMESTER OBSTETRICAL ULTRASOUND - LIMITED REASON FOR EXAM: Female, 33 years old. Weekly amniotic fluid follow up. Hypertension. LMP: January 01, 2018. PRIOR ULTRASOUND: Comparison is made with prior study dated August 14, 2018. TECHNIQUE: Transabdominal TECHNICAL QUALITY: Adequate. FINDINGS: There is a single intrauterine fetus. The fetus is in a cephalic presentation. There is demonstrated cardiac activity with a heart rate of 126 bpm. There is a normal amniotic fluid volume. The largest amniotic fluid pocket measures 6.2 cm. The amniotic fluid index (MARISELA) is 14.5 cm. The placenta is anterior in location and is not low lying. There are Grade 1 placental changes. The cervix measures 3.9 cm in length. Age by LMP: 33 weeks, 2 days. KALLIE by LMP: October 08, 2018. age by prior US: 33 weeks, 6 days. KALLIE by prior US: October 04, 2018. IMPRESSION: Normal amniotic fluid. Electronically Signed: Harjit Arellano, at 15:35 EDT , Service support , STUDY: OBSTETRICAL ULTRASOUND - BIOPHYSICAL PROFILE REASON FOR EXAM: Female, 33 years old. Hypertension. LMP: January 01, 2018. PRIOR ULTRASOUND: Comparison is made with prior sonogram dated August 14, 2018 TECHNIQUE: Transabdominal TECHNICAL QUALITY: Adequate. FINDINGS: There is a single intrauterine fetus. The fetus is in a cephalic presentation. There is demonstrated cardiac activity with a heart rate of 126 bpm. There is a normal amniotic fluid volume. The largest amniotic fluid pocket measures 6.2 cm. The amniotic fluid index (MARISELA) is 14.5 cm. The placenta is anterior in location and is not low lying. There are Grade 1 placental changes. BIOPHYSICAL PROFILE: Breathing Movements (FBM): 2 Gross Body Movements (GBM): 2 Tone (FT): 2 Amniotic Fluid Volume (AFV): 2 TOTAL SCORE: US/OB Limited (No Biometrics) IMPRESSION: Normal biophysical profile of 11/01. Electronically Signed: Harjit Arellano, at 15:36 EDT , Service support ,
== END | disposition home or self-care (01) ==
LOC: OPUS 13:52
PROVIDERS: Referring Provider Obstetrics & Gynecology; Visit Provider Obstetrics & Gynecology
DX: O10.919 Unspecified pre-existing hypertension complicating pregnancy, unspecified trimester (principal); Z3A.00 Weeks of gestation of pregnancy not specified
CPT/HCPCS: 76815; 76819

== ENCOUNTER → 2018-08-27 | Outpatient (CLI) | payer MEDICAID, SELFPAY ==
[2018-08-17 11:27] VITALS: BMI 33.5
--- NOTE | 2018-08-27 16:02 | US_ITS ---
STUDY: SECOND AND THIRD TRIMESTER OBSTETRICAL ULTRASOUND - LIMITED REASON FOR EXAM: Female, 33 years old. Evaluate MARISELA LMP: Unknown. PRIOR ULTRASOUND: 08/22/2018 TECHNIQUE: Transabdominal TECHNICAL QUALITY: Adequate. FINDINGS: There is a single intrauterine fetus. The fetus is in a cephalic presentation. There is demonstrated cardiac activity with a heart rate of 142 bpm. There is a normal amniotic fluid volume. The largest amniotic fluid pocket measures 2.9 x 3.9 cm. The amniotic fluid index (MARISELA) is 13.9 cm. The placenta is anterior in location and is not low lying. There are Grade 1 placental changes. The cervix measures 5.2 cm in length. age by LMP 34 weeks 0 days. Estimated dated delivery 10/08/2018 US/OB Limited (No Biometrics) IMPRESSION: Single viable intrauterine of approximately 34 weeks 0 days by LMP. A heart rate of 142 bpm is noted. The fetus is in cephalic presentation. The MARISELA is within normal limits, measuring 13.9 cm. Electronically Signed: Arnav Mcduffie MD at 17:55 EDT , Service support ,
--- NOTE | 2018-08-27 16:07 | US_ITS ---
STUDY: OBSTETRICAL ULTRASOUND - BIOPHYSICAL PROFILE REASON FOR EXAM: Female, 33 years old. Hypertension, evaluate for well-being LMP: 01/01/2018 PRIOR ULTRASOUND: 08/22/2018 TECHNIQUE: Transabdominal TECHNICAL QUALITY: Adequate. FINDINGS: There is a single intrauterine fetus. The fetus is in a cephalic presentation. There is demonstrated cardiac activity with a heart rate of 138 bpm. There is a normal amniotic fluid volume. The largest amniotic fluid pocket measures 5.6 cm. The amniotic fluid index (MARISELA) is 12.4 cm. Age by LMP: 34 weeks, 0 days. KALLIE by LMP: 10/08/2018. BIOPHYSICAL PROFILE: Breathing Movements (FBM): 2 Gross Body Movements (GBM): 2 Tone (FT): 2 Amniotic Fluid Volume (AFV): 2 TOTAL SCORE: US/Biophysical Profile IMPRESSION: Normal biophysical profile of 11/01. Electronically Signed: Arnav Mcduffie MD at 18:14 EDT , Service support ,
== END | disposition home or self-care (01) ==
LOC: US 16:01
PROVIDERS: Referring Provider Nurse Practitioner Women's Health; Visit Provider Nurse Practitioner Women's Health
DX: O10.919 Unspecified pre-existing hypertension complicating pregnancy, unspecified trimester (principal); Z3A.00 Weeks of gestation of pregnancy not specified
CPT/HCPCS: 76815; 76818

== ENCOUNTER → 2018-08-31 | Outpatient (CLI) | payer MEDICAID, SELFPAY ==
[2018-08-31 11:09] VITALS: BMI 33.5
[2018-08-31 11:35] LABS: Absolute Lymphocyte Count 1.09 X10^3/ul (0.83-4.51); Basophil# 0.01 X10^3/uL; Basophil% 0.1 % (0-1); Eosinophil# 0.05 X10^3/uL; Eosinophils% 0.7 % (0-5); Hematocrit 34.7 % (37-47); Hemoglobin 11.9 g/dl (12.0-15.0); Lymphocyte # 1.09 X10^3/ul (4.0); Lymphocyte % 16.2 % (19-41); Mean Corp Hgb Conc 34.3 g/gl (32-36); Mean Corpuscular Hgb 31.6 pg (27.0-32.0); Mean Corpuscular Volume 92.3 fL (81-99); Mean Platelet Vol. 10.3 fl (6.2-12.0); Monocyte% 8.9 % (0-10); Neutrophil # 4.95 X10^3/uL (2.7-7.7); Neutrophil % 73.8 % (47-70); POSITIVE COUNT NO; POSITIVE DIFFERENTIAL NO; POSITIVE MORPHOLOGY NO; Platelet Count 131 K/mm3 (150-450); RBC Distribution Width CV 13.4 % (11.6-14.6); RBC Distribution Width SD 44.5 fl (35.1-43.9); Red Blood Count 3.76 M/mm3 (4.2-5.4); White Blood Count 6.7 K/mm3 (4.4-11.0)
[2018-08-31 11:43] LABS: Protein, Urine (Random) 19.5 mg/dL (<11.9); Protein:Creat Ratio 108 mg/g CRE (0-200)
[2018-08-31 11:49] LABS: ALB/GLOB Ratio 0.8 RATIO (0.9-2.4); AST(SGOT) 14 U/L (15-37); Alanine Aminotransfer ALT/SGPT 17 U/L (13-56); Albumin, Serum 2.6 g/dL (3.2-5.0); Alkaline Phosphatase 90 U/L (45-117); Anion Gap 5 (5-15); BUN 9 mg/dL (7-18); Calcium,Total 8.2 mg/dL (8.5-10.1); Chloride 108 mmol/L (98-107); Creatinine, Serum 0.53 mg/dL (0.55-1.02); EST Glomerular Filtration Rate 140 mL/min (>60); Est Glom Filt Rate - Afr Amer 170 mL/min (>60); Globulin 3.4 g/dL (2.2-4.2); Glucose 77 mg/dL (74-106); Potassium 4.1 mmol/L (3.5-5.1); Sodium Level 137 mmol/L (136-145)
== END | disposition home or self-care (01) ==
LOC: PAVLAB 11:15
PROVIDERS: Referring Provider Nurse Practitioner Women's Health; Visit Provider Nurse Practitioner Women's Health
DX: O10.919 Unspecified pre-existing hypertension complicating pregnancy, unspecified trimester (principal); Z3A.00 Weeks of gestation of pregnancy not specified
CPT/HCPCS: 36415; 80053; 82570; 84156; 85025

== ENCOUNTER 2018-09-03 17:40 | Outpatient (CLI) | payer MEDICAID, SELFPAY ==
[2018-08-31 11:09] VITALS: BMI 33.5
[2018-09-03 19:12] LABS: Hematocrit 34.8 % (37-47); Hemoglobin 11.9 g/dl (12.0-15.0); Mean Corp Hgb Conc 34.2 g/gl (32-36); Mean Corpuscular Hgb 31.6 pg (27.0-32.0); Mean Corpuscular Volume 92.3 fL (81-99); Mean Platelet Vol. 10.5 fl (6.2-12.0); Platelet Count 148 K/mm3 (150-450); RBC Distribution Width CV 13.3 % (11.6-14.6); RBC Distribution Width SD 43.7 fl (35.1-43.9); Red Blood Count 3.77 M/mm3 (4.2-5.4); Scan Indicated on CBC? Y/N NO; White Blood Count 7.8 K/mm3 (4.4-11.0)
[2018-09-03 19:18] LABS: Partial Thromboplast Time 28.1 Seconds (24.1-36.2); Prothrombin Time (Protime)PT. 13.1 SECONDS (11.7-14.9)
[2018-09-03 19:19] VITALS: BMI 33.7
[2018-09-03 19:31] LABS: AST(SGOT) 17 U/L (15-37); Alanine Aminotransfer ALT/SGPT 18 U/L (13-56); Creatinine, Serum 0.53 mg/dL (0.55-1.02); EST Glomerular Filtration Rate 140 mL/min (>60); Est Glom Filt Rate - Afr Amer 170 mL/min (>60); Estimated Creatinine Clearance 140.01 ml/min; Uric Acid 4.3 mg/dL (2.6-6.0)
[2018-09-03 19:32] LABS: Protein, Urine (Random) 6.8 mg/dL (<11.9); Protein:Creat Ratio 264 mg/g CRE (0-200)
--- NOTE | 2018-09-09 04:31 | OB.TRI.PN ---
Progress Notes Date of Service: 09/03/18 Progress Note: Patient presents for NST secondary to 6 out of 8 BPP heart tone 130 moderate variability reactive no decelerations category 1 tracing [place]: No regular contractions Assessment and plan abnormal ultrasound with reassuring reactive NST. Overall 8 out of 10 BPP repeat BPP in 24 hours Laboratory Studies: Laboratory Tests 09/03/18 09/03/18 09/03/18 Range/Units 19:00 19:00 19:00 WBC (4.4-11.0) K/mm3 RBC (4.2-5.4) M/mm3 Hgb (12.0-15.0) g/dl Hct (37-47) % MCV (81-99) fL MCH (27.0-32.0) pg MCHC (32-36) g/gl RDW (11.6-14.6) % RDW Differential (35.1-43.9) fl Plt Count (150-450) K/mm3 MPV (6.2-12.0) fl PT 13.1 (11.7-14.9) SECONDS INR 1.0 APTT 28.1 (24.1-36.2) Seconds Creatinine 0.53 L (0.55-1.02) mg/dL Estim Creat Clear Calc 140.01 ml/min Est GFR (MDRD) Af Amer 170 (>60) mL/min Est GFR (MDRD) Non-Af 140 (>60) mL/min Uric Acid 4.3 (2.6-6.0) mg/dL AST 17 (15-37) U/L ALT 18 (13-56) U/L U Random Total Protein 6.8 (<11.9) mg/dL Urine Creatinine 25.80 (NO RANGE EST.) mg/dL Protein/Creatinin Ratio 264 H (0-200) mg/g CRE 09/03/18 Range/Units 19:00 WBC 7.8 (4.4-11.0) K/mm3 RBC 3.77 L (4.2-5.4) M/mm3 Hgb 11.9 L (12.0-15.0) g/dl Hct 34.8 L (37-47) % MCV 92.3 (81-99) fL MCH 31.6 (27.0-32.0) pg MCHC 34.2 (32-36) g/gl RDW 13.3 (11.6-14.6) % RDW Differential 43.7 (35.1-43.9) fl Plt Count 148 L (150-450) K/mm3 MPV 10.5 (6.2-12.0) fl PT (11.7-14.9) SECONDS INR APTT (24.1-36.2) Seconds Creatinine (0.55-1.02) mg/dL Estim Creat Clear Calc ml/min Est GFR (MDRD) Af Amer (>60) mL/min Est GFR (MDRD) Non-Af (>60) mL/min Uric Acid (2.6-6.0) mg/dL AST (15-37) U/L ALT (13-56) U/L U Random Total Protein (<11.9) mg/dL Urine Creatinine (NO RANGE EST.) mg/dL Protein/Creatinin Ratio (0-200) mg/g CRE
== END 2018-09-03 19:50 | disposition home or self-care (01) ==
LOC: WPOUT 17:47 → WP 17:47
PROVIDERS: Referring Provider Obstetrics & Gynecology; Visit Provider Obstetrics & Gynecology
DX: O28.3 Abnormal ultrasonic finding on antenatal screening of mother (principal); O10.919 Unspecified pre-existing hypertension complicating pregnancy, unspecified trimester; Z3A.00 Weeks of gestation of pregnancy not specified
CPT/HCPCS: 36415; 59025; 59050; 76815; 76819; 82565; 82570; 84156; 84450; 84460; 84550; 85027; 85610; 85730; 99218; G0378

== ENCOUNTER → 2018-09-03 | Outpatient (CLI) | payer MEDICAID, SELFPAY ==
[2018-08-17 11:27] VITALS: BMI 33.5
[2018-08-31 11:09] VITALS: BMI 33.5
--- NOTE | 2018-09-03 08:01 | US_ITS ---
STUDY: SECOND AND THIRD TRIMESTER OBSTETRICAL ULTRASOUND - LIMITED REASON FOR EXAM: Female, 33 years old. Amniotic fluid index check. Hypertension. LMP: January 01, 2018. PRIOR ULTRASOUND: Comparison is made with prior study dated August 27, 2018. TECHNIQUE: Transabdominal TECHNICAL QUALITY: Adequate. FINDINGS: There is a single intrauterine fetus. The fetus is in a cephalic presentation. There is demonstrated cardiac activity with a heart rate of 1:30 bpm. There is a normal amniotic fluid volume. The largest amniotic fluid pocket measures 2.6 cm. The amniotic fluid index (MARISELA) is 9.1 cm. The placenta is anterior in location and is not low lying. There are Grade 1 placental changes. The cervix measures 3.3 cm in length. Age by LMP: 35 weeks, 0 days. KALLIE by LMP: October 08, 2018. age by prior US: 35 weeks, 4 days. KALLIE by prior US: October 04, 2018. IMPRESSION: Amniotic fluid is within normal limits. Electronically Signed: Harjit Arellano, at 15:01 EDT , Service support , STUDY: OBSTETRICAL ULTRASOUND - BIOPHYSICAL PROFILE REASON FOR EXAM: Female, 33 years old. Hypertension. LMP: January 01, 2018. PRIOR ULTRASOUND: Comparison is made with prior study dated August 27, 2018. TECHNIQUE: Transabdominal TECHNICAL QUALITY: Adequate. FINDINGS: There is a single intrauterine fetus. The fetus is in a cephalic presentation. There is demonstrated cardiac activity with a heart rate of 130 bpm. There is a normal amniotic fluid volume. The largest amniotic fluid pocket measures 2.6 cm. The amniotic fluid index (MARISELA) is 9.1 cm. The placenta is anterior in location and is not low lying. There are Grade 1 placental changes. BIOPHYSICAL PROFILE: Breathing Movements (FBM): 2 Gross Body Movements (GBM): 2 Tone (FT): 2 Amniotic Fluid Volume (AFV): 0 TOTAL SCORE: US/OB Limited (No Biometrics) IMPRESSION: Normal biophysical profile of 09/01. Electronically Signed: Harjit Arellano, at 15:03 EDT , Service support ,
== END | disposition home or self-care (01) ==
LOC: OPUS 08:00
PROVIDERS: Referring Provider Nurse Practitioner Women's Health; Visit Provider Nurse Practitioner Women's Health
DX: O10.919 Unspecified pre-existing hypertension complicating pregnancy, unspecified trimester (principal); Z3A.00 Weeks of gestation of pregnancy not specified
CPT/HCPCS: 76815; 76819

== ENCOUNTER → 2018-09-04 | Outpatient (CLI) | payer MEDICAID, SELFPAY ==
[2018-09-03 19:19] VITALS: BMI 33.7
--- NOTE | 2018-09-04 08:40 | US_ITS ---
STUDY: OBSTETRICAL ULTRASOUND - BIOPHYSICAL PROFILE REASON FOR EXAM: Female, 33 years old. well being. LMP: January 01, 2018. PRIOR ULTRASOUND: Comparison is made with prior study dated September 03, 2018. TECHNIQUE: Transabdominal TECHNICAL QUALITY: Adequate. FINDINGS: There is a single intrauterine fetus. The fetus is in a cephalic presentation. There is demonstrated cardiac activity with a heart rate of 125 bpm. There is a normal amniotic fluid volume. The largest amniotic fluid pocket measures 5.6 cm. The amniotic fluid index (MARISELA) is 13.5 cm. The placenta is anterior in location and is not low lying. There are Grade 1 placental changes. BIOPHYSICAL PROFILE: Breathing Movements (FBM): 0 Gross Body Movements (GBM): 2 Tone (FT): 2 Amniotic Fluid Volume (AFV): 2 TOTAL SCORE: US/Biophysical Profile IMPRESSION: biophysical profile of 09/01. Electronically Signed: Harjit Arellano, at 11:04 EDT , Service support ,
== END | disposition home or self-care (01) ==
LOC: US 08:39
PROVIDERS: Referring Provider Nurse Practitioner Women's Health; Visit Provider Nurse Practitioner Women's Health
DX: O99.119 Other diseases of the blood and blood-forming organs and certain disorders involving the immune mechanism complicating pregnancy, unspecified trimester (principal); D69.6 Thrombocytopenia, unspecified; Z3A.00 Weeks of gestation of pregnancy not specified
CPT/HCPCS: 76818

== ENCOUNTER → 2018-09-07 | Outpatient (CLI) | payer MEDICAID, SELFPAY ==
[2018-09-07 10:27] VITALS: BMI 33.3
[2018-09-07 11:14] LABS: Protein, Urine (Random) 19.2 mg/dL (<11.9); Protein:Creat Ratio 181 mg/g CRE (0-200)
[2018-09-07 11:40] LABS: Absolute Lymphocyte Count 1.23 X10^3/ul (0.83-4.51); Absolute Neutrophil Count 5.8 X10^3/uL (2.0-7.7); Basophil# 0.01 X10^3/uL; Basophil% 0.1 % (0-1); Eosinophil# 0.09 X10^3/uL; Eosinophils% 1.1 % (0-5); Hematocrit 38.1 % (37-47); Hemoglobin 12.9 g/dl (12.0-15.0); Lymphocyte # 1.23 X10^3/ul (4.0); Lymphocyte % 15.6 % (19-41); Mean Corp Hgb Conc 33.9 g/gl (32-36); Mean Corpuscular Hgb 31.4 pg (27.0-32.0); Mean Corpuscular Volume 92.7 fL (81-99); Mean Platelet Vol. 10.6 fl (6.2-12.0); Monocyte# 0.77 X10^3/uL; Monocyte% 9.8 % (0-10); Neutrophil # 5.77 X10^3/uL (2.7-7.7); Neutrophil % 73.3 % (47-70); Platelet Count 139 K/mm3 (150-450); RBC Distribution Width CV 13.3 % (11.6-14.6); RBC Distribution Width SD 44.3 fl (35.1-43.9); Red Blood Count 4.11 M/mm3 (4.2-5.4); White Blood Count 7.9 K/mm3 (4.4-11.0)
[2018-09-07 11:41] LABS: POSITIVE COUNT NO; POSITIVE DIFFERENTIAL NO; POSITIVE MORPHOLOGY NO
[2018-09-07 12:00] LABS: ALB/GLOB Ratio 0.8 RATIO (0.9-2.4); AST(SGOT) 12 U/L (15-37); Alanine Aminotransfer ALT/SGPT 18 U/L (13-56); Albumin, Serum 2.7 g/dL (3.2-5.0); Alkaline Phosphatase 100 U/L (45-117); Anion Gap 2 (5-15); BUN 7 mg/dL (7-18); BUN/Creat Ratio 13.3 RATIO (10-20); Calcium,Total 8.5 mg/dL (8.5-10.1); Chloride 107 mmol/L (98-107); Creatinine, Serum 0.53 mg/dL (0.55-1.02); EST Glomerular Filtration Rate 141 mL/min (>60); Est Glom Filt Rate - Afr Amer 170 mL/min (>60); Globulin 3.6 g/dL (2.2-4.2); Glucose 89 mg/dL (74-106); Potassium 4.1 mmol/L (3.5-5.1); Protein, Total 6.3 g/dL (6.4-8.2); Sodium Level 135 mmol/L (136-145)
== END | disposition home or self-care (01) ==
LOC: LABSPEC 10:59 → PAVLAB 11:14
PROVIDERS: Referring Provider Obstetrics & Gynecology; Visit Provider Obstetrics & Gynecology
DX: O10.919 Unspecified pre-existing hypertension complicating pregnancy, unspecified trimester (principal); Z3A.00 Weeks of gestation of pregnancy not specified
CPT/HCPCS: 36415; 80053; 82570; 84156; 85025

== ENCOUNTER 2018-09-10 15:15 | Outpatient (CLI) | payer MEDICAID, SELFPAY ==
[2018-09-10 15:19] VITALS: BMI 33.3
[2018-09-10 15:32] VITALS: BMI 33.9
[2018-09-10 16:11] LABS: Hematocrit 34.5 % (37-47); Hemoglobin 11.8 g/dl (12.0-15.0); Mean Corp Hgb Conc 34.2 g/gl (32-36); Mean Corpuscular Hgb 31.6 pg (27.0-32.0); Mean Corpuscular Volume 92.2 fL (81-99); Mean Platelet Vol. 10.8 fl (6.2-12.0); Platelet Count 151 K/mm3 (150-450); RBC Distribution Width CV 13.2 % (11.6-14.6); Red Blood Count 3.74 M/mm3 (4.2-5.4); White Blood Count 6.8 K/mm3 (4.4-11.0)
[2018-09-10 16:16] LABS: Scan Indicated on CBC? Y/N NO
[2018-09-10 16:36] LABS: International Normalized Ratio 1.1; Prothrombin Time (Protime)PT. 13.9 SECONDS (11.7-14.9)
[2018-09-10 16:37] LABS: AST(SGOT) 16 U/L (15-37); Alanine Aminotransfer ALT/SGPT 17 U/L (13-56); Creatinine, Serum 0.77 mg/dL (0.55-1.02); EST Glomerular Filtration Rate 90 mL/min (>60); Est Glom Filt Rate - Afr Amer 109 mL/min (>60); Estimated Creatinine Clearance 96.37 ml/min; Partial Thromboplast Time 29.1 Seconds (24.1-36.2); Uric Acid 4.3 mg/dL (2.6-6.0)
[2018-09-10 16:45] LABS: Protein, Urine (Random) 8.6 mg/dL (<11.9); Protein:Creat Ratio 67 mg/g CRE (0-200)
--- NOTE | 2018-09-11 01:29 | OB.TRI.PN_ITS ---
Progress Notes Date of Service: 09/10/18 Progress Note: Patient evaluated for borderline elevated blood pressure in the office with headache and changes in vision Upon evaluation intraoral blood pressures are within normal limits and headache is resolving and patient denies any blurry vision at this time. NST is reactive and all clamps the labs are within normal limits including a normal urine protein. heart tones 130 moderate variability reactive no decelerations category 1 tracing [place]: No regular contractions Assessment and plan headache and blood pressures now within normal limits and headache improving, negative preeclampsia work-up, reviewed preeclampsia precautions. Reactive NST DC home Laboratory Studies: Laboratory Tests 09/10/18 09/10/18 09/10/18 Range/Units 15:40 15:40 15:40 WBC (4.4-11.0) K/mm3 RBC (4.2-5.4) M/mm3 Hgb (12.0-15.0) g/dl Hct (37-47) % MCV (81-99) fL MCH (27.0-32.0) pg MCHC (32-36) g/gl RDW (11.6-14.6) % RDW Differential (35.1-43.9) fl Plt Count (150-450) K/mm3 MPV (6.2-12.0) fl PT 13.9 (11.7-14.9) SECONDS INR 1.1 APTT 29.1 (24.1-36.2) Seconds Creatinine 0.77 (0.55-1.02) mg/dL Estim Creat Clear Calc 96.37 ml/min Est GFR (MDRD) Af Amer 109 (>60) mL/min Est GFR (MDRD) Non-Af 90 (>60) mL/min Uric Acid 4.3 (2.6-6.0) mg/dL AST 16 (15-37) U/L ALT 17 (13-56) U/L U Random Total Protein 8.6 (<11.9) mg/dL Urine Creatinine 129.00 (NO RANGE EST.) mg/dL Protein/Creatinin Ratio 67 (0-200) mg/g CRE 09/10/18 Range/Units 15:40 WBC 6.8 (4.4-11.0) K/mm3 RBC 3.74 L (4.2-5.4) M/mm3 Hgb 11.8 L (12.0-15.0) g/dl Hct 34.5 L (37-47) % MCV 92.2 (81-99) fL MCH 31.6 (27.0-32.0) pg MCHC 34.2 (32-36) g/gl RDW 13.2 (11.6-14.6) % RDW Differential 44.0 H (35.1-43.9) fl Plt Count 151 (150-450) K/mm3 MPV 10.8 (6.2-12.0) fl PT (11.7-14.9) SECONDS INR APTT (24.1-36.2) Seconds Creatinine (0.55-1.02) mg/dL Estim Creat Clear Calc ml/min Est GFR (MDRD) Af Amer (>60) mL/min Est GFR (MDRD) Non-Af (>60) mL/min Uric Acid (2.6-6.0) mg/dL AST (15-37) U/L ALT (13-56) U/L U Random Total Protein (<11.9) mg/dL Urine Creatinine (NO RANGE EST.) mg/dL Protein/Creatinin Ratio (0-200) mg/g CRE
== END 2018-09-10 17:20 | disposition home or self-care (01) ==
LOC: WPOUT 15:21 → WP 15:22
PROVIDERS: Referring Provider Obstetrics & Gynecology; Visit Provider Obstetrics & Gynecology
DX: O26.899 Other specified pregnancy related conditions, unspecified trimester (principal); R51 Headache; Z3A.00 Weeks of gestation of pregnancy not specified
CPT/HCPCS: 36415; 59025; 59050; 82565; 82570; 84156; 84450; 84460; 84550; 85027; 85610; 85730; 99218; G0378

== ENCOUNTER → 2018-09-11 | Outpatient (CLI) | payer MEDICAID, SELFPAY ==
[2018-06-29 09:55] VITALS: BMI 32.8
[2018-09-10 15:32] VITALS: BMI 33.9
--- NOTE | 2018-09-11 12:55 | US_ITS ---
STUDY: SECOND AND THIRD TRIMESTER OBSTETRICAL ULTRASOUND - LIMITED REASON FOR EXAM: Female, 33 years old. Routine survey. Weekly amniotic fluid index. LMP: January 01, 2018. PRIOR ULTRASOUND: Comparison is made with prior study dated September 04, 2018. TECHNIQUE: Transabdominal TECHNICAL QUALITY: Adequate. FINDINGS: There is a single intrauterine fetus. The fetus is in a cephalic presentation. There is demonstrated cardiac activity with a heart rate of 125 bpm. There is a normal amniotic fluid volume. The largest amniotic fluid pocket measures 4.8 cm. The amniotic fluid index (MARISELA) is 10.9 cm. The placenta is anterior in location and is not low lying. There are Grade 2 placental changes. The cervix measures 3.5 cm in length. BIOMETRY: BPD: 8.78 cm: 35 weeks, 4 days HC: 32.79 cm: 37 weeks, 2 days AC: 35.13 cm: 39 weeks, 1 days FL: 7.29 cm: 37 weeks, 3 days Age by LMP: 36 weeks, 1 days. KALLIE by LMP: October 08, 2018. age by prior US: 36 weeks, 5 days. KALLIE by prior US: October 04, 2018. age by current US: 37 weeks, 3 days. KALLIE by current US: September 29, 2018. Estimated weight: 3365 grams, +/- 491 grams, 92 percentile. Gender: Indeterminant IMPRESSION: Single live intrauterine gestation with a mean gestational age of 36 weeks and 5 days. The measurements obtained today following within the normal expected range. Electronically Signed: Harjit Arellano, at 14:20 EDT , Service support , STUDY: OBSTETRICAL ULTRASOUND - BIOPHYSICAL PROFILE REASON FOR EXAM: Female, 33 years old. Weekly amniotic fluid index. LMP: January 01, 2018 PRIOR ULTRASOUND: September 04, 2018 TECHNIQUE: Transabdominal TECHNICAL QUALITY: Adequate. FINDINGS: There is a single intrauterine fetus. The fetus is in a cephalic presentation. There is demonstrated cardiac activity with a heart rate of 125 bpm. There is a normal amniotic fluid volume. The largest amniotic fluid pocket measures 4.8 cm. The amniotic fluid index (MARISELA) is 10.9 cm. The placenta is anterior in location and is not low lying. There are Grade 0 placental changes. BIOPHYSICAL PROFILE: Breathing Movements (FBM): 2 Gross Body Movements (GBM): 2 Tone (FT): 2 Amniotic Fluid Volume (AFV): 2 TOTAL SCORE: US/OB Limited With Biometrics IMPRESSION: Normal biophysical profile of 11/01. Electronically Signed: Harjit Arellano, at 14:21 EDT , Service support ,
== END | disposition home or self-care (01) ==
LOC: OPUS 12:54
PROVIDERS: Referring Provider Nurse Practitioner Women's Health; Visit Provider Nurse Practitioner Women's Health
DX: O10.919 Unspecified pre-existing hypertension complicating pregnancy, unspecified trimester (principal); Z3A.00 Weeks of gestation of pregnancy not specified
CPT/HCPCS: 76816; 76818

== ENCOUNTER 2018-09-14 14:08 | Outpatient (CLI) | payer MEDICAID, SELFPAY ==
[2018-09-14 13:47] VITALS: BMI 33.9
--- NOTE | 2018-09-14 14:17 | US_ITS ---
STUDY: OBSTETRICAL ULTRASOUND - BIOPHYSICAL PROFILE REASON FOR EXAM: Female, 33 years old. well being LMP: 01/01/2018 PRIOR ULTRASOUND: 09/11/2018. TECHNIQUE: And obstetrical ultrasound was performed. Multiple sanchez scale and color duplex Doppler images were obtained TECHNICAL QUALITY: Adequate. FINDINGS: There is a single intrauterine fetus. The fetus is in a cephalic presentation. There is demonstrated cardiac activity with a heart rate of 147 to 172 bpm. There is a normal amniotic fluid volume. The largest amniotic fluid pocket measures 5.2 cm. The amniotic fluid index (MARISELA) is 12.7 cm. The placenta is anterior and clear of the cervical os.. There is a grade 2 placenta. Age by LMP: 36 weeks, 4 days. KALLIE by LMP: 10/08/2018. age by prior US: 37 weeks, 6 days. KALLIE by prior US: 09/29/2018. BIOPHYSICAL PROFILE: Breathing Movements (FBM): 2 Gross Body Movements (GBM): 2 Tone (FT): 2 Amniotic Fluid Volume (AFV): 2 TOTAL SCORE: 8 / 8 US/Biophysical Profile IMPRESSION: Normal biophysical profile of 11/01. Electronically Signed: Aniceto Luis Enrique, at 17:49 EDT Tel , Service support ,
[2018-09-14 14:26] VITALS: BMI 33.4
[2018-09-14 16:38] LABS: Group B Strep DNA By PCR Negative (Negative); Internal Control PASS; Probe Check PASS; Specimen Processing Control PASS
--- NOTE | 2018-09-16 16:15 | OB.TRI.PN ---
Progress Notes Date of Service: 09/14/18 Progress Note: NST and BPP secondary to tachycardia nonreactive NST in the office heart tones 150s moderate variability reactive no decelerations category 1 tracing 10 out of 10 BPP now.Assessment and plan: tachycardia?now resolved DC home kick counts Laboratory Studies: Laboratory Tests 09/14/18 Range/Units 14:35 Group B Strep DNA Negative (Negative) Specimen Comment Not Reportable
== END 2018-09-14 16:50 | disposition home or self-care (01) ==
LOC: WPOUT 14:11 → WP 14:12
PROVIDERS: Referring Provider Obstetrics & Gynecology; Visit Provider Obstetrics & Gynecology
DX: O76 Abnormality in fetal heart rate and rhythm complicating labor and delivery (principal); Z3A.00 Weeks of gestation of pregnancy not specified
CPT/HCPCS: 59025; 59050; 76818; 87081; 87653; 99218; G0378

== ENCOUNTER → 2018-09-17 | Outpatient (CLI) | payer MEDICAID, SELFPAY ==
[2018-08-17 11:27] VITALS: BMI 33.5
[2018-09-14 14:26] VITALS: BMI 33.4
--- NOTE | 2018-09-17 12:39 | US_ITS ---
STUDY: OBSTETRICAL ULTRASOUND - BIOPHYSICAL PROFILE REASON FOR EXAM: Female, 33 years old. well-being. MARISELA. LMP: 01/01/2018 TECHNIQUE: Transabdominal TECHNICAL QUALITY: Adequate. FINDINGS: There is a single intrauterine fetus. The fetus is in a cephalic presentation. There is demonstrated cardiac activity with a heart rate of 140 bpm. There is a normal amniotic fluid volume. The largest amniotic fluid pocket measures 4.19 cm. The amniotic fluid index (MARISELA) is 12.67 cm. The placenta is anterior and not low lying. There are Grade 3 placental changes. Age by LMP: 37 weeks, 0 days. KALLIE by LMP: 01/01/2018. age by prior US: 38 weeks, 2 days. KALLIE by prior US: September 29, 2018. BIOPHYSICAL PROFILE: Breathing Movements (FBM): 2 Gross Body Movements (GBM): 2 Tone (FT): 2 Amniotic Fluid Volume (AFV): 2 TOTAL SCORE: 8 / 8 US/Biophysical Profile IMPRESSION: Normal biophysical profile of 11/01. Electronically Signed: Erinn Rubio MD at 16:55 EDT Tel , Service support ,
== END | disposition home or self-care (01) ==
LOC: OPUS 12:38
PROVIDERS: Referring Provider Nurse Practitioner Women's Health; Visit Provider Nurse Practitioner Women's Health
DX: O10.919 Unspecified pre-existing hypertension complicating pregnancy, unspecified trimester (principal); Z3A.00 Weeks of gestation of pregnancy not specified
CPT/HCPCS: 76815; 76818

== ENCOUNTER → 2018-09-24 | Outpatient (CLI) | payer MEDICAID, SELFPAY ==
[2018-08-17 11:27] VITALS: BMI 33.5
[2018-09-21 11:09] VITALS: BMI 33.4
--- NOTE | 2018-09-24 12:30 | US_ITS ---
STUDY: SECOND AND THIRD TRIMESTER OBSTETRICAL ULTRASOUND - LIMITED REASON FOR EXAM: Female, 33 years old. growth. Hypertension. LMP: January 01, 2018. PRIOR ULTRASOUND: Comparison is made with prior study dated September 17, 2018. TECHNIQUE: Transabdominal TECHNICAL QUALITY: Adequate. FINDINGS: There is a single intrauterine fetus. The fetus is in a cephalic presentation. There is demonstrated cardiac activity with a heart rate of 140 bpm. There is a normal amniotic fluid volume. The largest amniotic fluid pocket measures 3.4 cm. The amniotic fluid index (MARISELA) is 8.38 cm. The placenta is anterior in location and is not low lying. There are Grade 3 placental changes. The cervix cannot be measured due to the head position. BIOMETRY: BPD: 9.06 cm: 36 weeks, 6 days HC: 33.49 cm: 38 weeks, 3 days AC: 36.15 cm: 40 weeks, 1 days FL: 7.54 cm: 38 weeks, 4 days Age by LMP: 38 weeks, 0 days. KALLIE by LMP: October 08, 2018. age by prior US: 39 weeks, 2 days. KALLIE by prior US: September 29, 2018. age by current US: 38 weeks, 4 days. KALLIE by current US: October 04, 2018. Estimated weight: 3686 grams, +/- 538 grams, 86 percentile. IMPRESSION: Single live uterine gestation with a mean gestational age of 39 weeks and 2 days. The measurements obtained today fall within the normal expected range. Electronically Signed: Harjit Arellano, at 15:58 EDT , Service support , STUDY: OBSTETRICAL ULTRASOUND - BIOPHYSICAL PROFILE REASON FOR EXAM: Female, 33 years old. Hypertension. LMP: January 01, 2018. PRIOR ULTRASOUND: Comparison is made with prior study dated September 17, 2018. TECHNIQUE: Transabdominal TECHNICAL QUALITY: Adequate. BIOPHYSICAL PROFILE: Breathing Movements (FBM): 2 Gross Body Movements (GBM): 2 Tone (FT): 2 Amniotic Fluid Volume (AFV): 2 TOTAL SCORE: US/OB Limited With Biometrics IMPRESSION: Normal biophysical profile of 11/01. Electronically Signed: Harjit Arellano, at 15:58 EDT , Service support ,
== END | disposition home or self-care (01) ==
LOC: OPUS 12:29
PROVIDERS: Referring Provider Nurse Practitioner Women's Health; Visit Provider Nurse Practitioner Women's Health
DX: O10.919 Unspecified pre-existing hypertension complicating pregnancy, unspecified trimester (principal); Z3A.00 Weeks of gestation of pregnancy not specified
CPT/HCPCS: 76816; 76819

== ENCOUNTER 2018-09-25 18:53 | Inpatient (IN) | payer MEDICAID, SELFPAY ==
[2018-09-24 13:14] VITALS: BMI 33.4
[2018-09-25] MEDS: Lactated Ringers 1,000 ML 50 ML IV (19:30)
[2018-09-25 19:41] VITALS: BMI 33.7
[2018-09-25 19:58] LABS: Absolute Lymphocyte Count 1.29 X10^3/ul (0.83-4.51); Absolute Neutrophil Count 5.6 X10^3/uL (2.0-7.7); Basophil# 0.01 X10^3/uL; Basophil% 0.1 % (0-1); Eosinophil# 0.06 X10^3/uL; Eosinophils% 0.8 % (0-5); Hematocrit 36.8 % (37-47); Hemoglobin 12.7 g/dl (12.0-15.0); Lymphocyte # 1.29 X10^3/ul (4.0); Lymphocyte % 16.5 % (19-41); Mean Corp Hgb Conc 34.5 g/gl (32-36); Mean Corpuscular Hgb 31.6 pg (27.0-32.0); Mean Corpuscular Volume 91.5 fL (81-99); Mean Platelet Vol. 11.4 fl (6.2-12.0); Monocyte# 0.84 X10^3/uL; Monocyte% 10.8 % (0-10); Neutrophil # 5.57 X10^3/uL (2.7-7.7); Neutrophil % 71.3 % (47-70); Platelet Count 144 K/mm3 (150-450); RBC Distribution Width CV 13.2 % (11.6-14.6); RBC Distribution Width SD 41.9 fl (35.1-43.9); Red Blood Count 4.02 M/mm3 (4.2-5.4); White Blood Count 7.8 K/mm3 (4.4-11.0)
[2018-09-25 20:00] LABS: POSITIVE COUNT NO; POSITIVE DIFFERENTIAL NO; POSITIVE MORPHOLOGY NO
[2018-09-25] MEDS: 0.9% Normal Saline 100 ML IV.SOLN. INTRA-UTER (20:45)
[2018-09-25] MEDS: Oxytocin 30 units/NS 500 ml 30 UNITS/500 ML IV.SOLN IV (20:50)
[2018-09-25] MEDS: Mag Hydrox/Al Hydrox/Simeth 30 ML UDC PO (21:06)
[2018-09-26] MEDS: Lactated Ringers 1,000 ML 50 ML IV (01:09)
[2018-09-26] MEDS: fentaNYL-bupivacaine (epidural) 100 ML BAG EPIDURAL (01:23)
[2018-09-26] MEDS: Acetaminophen 325 MG Tablet PO (01:41)
--- NOTE | 2018-09-26 01:50 | PCM.HP.OB ---
- Problem List (1) Genital herpes Status: Acute Qualifiers: Comment: valtrex daily 36 wk (2) Thrombocytopenia affecting Status: Acute Comment: recheck CBC in 1 wk. 09/10 151 (3) Seasonal allergies Status: Acute (4) General counseling and advice on contraceptive management Status: Acute Comment: plans liletta IUD 6 wk pp (5) Chronic hypertension affecting Status: Chronic Comment: IOL at 38 weeks. baseline labs nl. no meds. ?white coat syndrome, recommend weekly nst/justyn after 32 weeks, deliver by 38, growth q 4 weeks after 32; negative Pre E labs week of 09/10 (6) Supervision of high risk , antepartum Status: Acute Comment: PRR KALLIE 10/08/18 PC Mary Crane Remi Rell (7) Status: Acute Qualifiers: Comment: genetic, carrier, and ntd screening declined. anatomy scan normal (8) Pt. goes by Ashutosh Status: Acute History Date of Admission: 09/25/18 Final KALLIE: 10/08/18 Gestational age: 38 Weeks and 2 Days History of this : This is a 33 year-old, at 38 weeks gestational age presents for IOL secondary to cHTN. she denies any [facility] admits good fm no regular ctx or vb or lof. Medical History: Medical History (Last Reviewed 09/21/18 @ 10:24 by Kerri Lott) Seasonal allergies (Acute) J30.2 Anxiety and depression F41.9, F32.9 History of vaginal delivery x3 Sciatica M54.30 Allergies No Known Allergies Allergy (Verified 09/25/18 19:39) Home Medications: Home Medications loratadine 10 mg tablet 10 mg PO DAILY PRN 03/02/18 vitamin,calcium,fyfdqgwm-xoia-xivmx acid tablet 1 tab PO DAILY 03/02/18 diphenhydramine 25 mg capsule 25 mg PO QHS PRN 08/03/18 Acetaminophen 1,000 mg PO Q8H 09/10/18 Valacyclovir HCl [Valacyclovir] 500 mg PO DAILY 09/25/18 Smoking Status: Former smoker Number of Fetus(es): 1 Heart Tracin moderate variability reactive no decelerations category I tracing Timpson: irregular History Past Pregnancies: Past Pregnancies Pregancy History 4 Elective abortions Hx Para 3 Spontaneous abortions Hx # Term Pregnancies 3 Ectopic pregnancies Hx # Pregnancies Multiple births # of living children 3 Past Pregnancies Del. Date Name GA/Weeks Outcome Route Bth Weight Infant Gen Labor Lgth Anesthesia Del [facility] Provider FOB 05/07/07 Rosa Maria 40 live - full term 8 Female epidural 03/24/15 Mary 40 live - full term 8 Female epidural 12/16/16 Oren 40 live - full term 8 Female epidural Labs: Mom's Labs & Results 09/25/18 09/25/18 19:30 19:30 WBC 7.8 RBC 4.02 L Hgb 12.7 Hct 36.8 L MCV 91.5 MCH 31.6 MCHC 34.5 RDW 13.2 RDW Differential 41.9 Plt Count 144 L MPV 11.4 Immature Gran % (Auto) 0.500 Neut % (Auto) 71.3 H Lymph % (Auto) 16.5 L [place] % (Auto) 10.8 H Eos % (Auto) 0.8 Baso % (Auto) 0.1 Absolute Neuts (auto) 5.6 Absolute Lymphs (auto) 1.29 Total Counted Not Reportable Blood Type A POSITIVE Antibody Screen NEGATIVE Course Did the patient receive Yes care? Labs Blood Type: A RH: POSITIVE RPR/VDRL/Syphilis Nonreactive Rubella status Immune HbSAg Negative Date Done: 03/02/18 Chlamydia Negative Gonorrhea Negative HIV/AIDS Non-Reactive Group B Strep: Negative Current Obstetrical History Gestational Diabetes No Incompetent Cervix No Infertility No IUGR No Macrosomia No Hypertension/Pre-eclampsia Yes: no meds Placenta Previa/Abruption No PTL/PROM No Uterine anomaly No Oligohydramnios No Polyhydramnios No Multiple gestation No Past Medical History Asthma No Diabetes No Hypertension No Heart disease No Mitral valve prolapse No Neurologic/Seizure disorder/ No Migraines Kidney disease No Liver disease No Varicosities No Clotting disorders/Hx of DVT No Thyroid Dysfunction No Other medical diseases No Psychiatric disorders No Major trauma No Abnormal PAP smear No Sleep apnea No Mammogram in the last 2 years No Enter DETAILS of medical enlarged spleen from history MONO history Social History Marital Status: SINGLE Alleged father Rell Hx Smoking Yes Smoking Status Former smoker Expected Delivery Method: Spontaneous Vaginal Review of Systems Constitutional: Denies: Fever, Malaise Eyes: Denies: Blurred vision, Vision Change HEENT: Denies: Head Aches, Visual Changes Cardiovascular: Denies: Chest Pain, Palpitations Respiratory: Denies: Cough, Shortness of Breath, Wheezing Gastrointestinal: Denies: Abdominal Pain, Diarrhea, Nausea, Vomiting Genitourinary: Denies: Dysuria, Hematuria Musculoskeletal: Denies: Joint Pain, Muscle pain Skin: Denies: Lesions, Rash Neurological: Denies: Blurred vision, Focal weakness, Headaches Psychiatric: Denies: Anxiety, Depression Endocrine: Denies: Heat/ Cold Intolerance Hematologic/ Lymphatic: Denies: Easy Bruising, Easy Bleeding Physical Exam General: Alert, Cooperative, No apparent distress HEENT: Atraumatic, Normocephalic. Negative for: Thyromegaly, Lymphadenopathy Cardiovascular: Regular rate Lungs: Normal air movement Abdomen: Soft, Non Tender, Gravid Neurological: Deep Tendon Reflexes 2+/4 and Symmetrical, Neuro grossly intact. 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 Negative for: Vulvar lesions Estimated gestational size: Appropriate for gestational size Presentation: Cephalic Assessment/Plan All Active Problems (Last Reviewed 09/21/18 @ 10:24 by Kerri Lott) Genital herpes (Acute) Thrombocytopenia affecting (Acute) Seasonal allergies (Acute) General counseling and advice on contraceptive management (Acute) Supervision of high risk , antepartum (Acute) (Acute) Pt. goes by Ashutosh (Acute) Epigastric pain (Resolved) Supervision of normal (Resolved) This is a 33 year-old, , at 38 weeks gestational age presents IOL cHTN. Patient presents IOL, plan management for , pitocin/AROM clear fluid after morillo bulb expelled. Pain management: epidural. GBS negative. Management of any complications: cHTN- bps controlled, gestational thrombocytopenia, platelets stable I have reviewed the [facility] and made any clinically relevant updates.
[2018-09-26] MEDS: Oxytocin 30 units/NS 500 ml 30 UNITS/500 ML IV.SOLN 334 UNITS IV (05:30)
--- NOTE | 2018-09-26 05:41 | PCM.OPRPT ---
Problem List (1) Genital herpes Status: Acute Qualifiers: Comment: valtrex daily 36 wk (2) Thrombocytopenia affecting Status: Acute Comment: recheck CBC in 1 wk. 09/10 151 (3) Seasonal allergies Status: Acute (4) General counseling and advice on contraceptive management Status: Acute Comment: plans liletta IUD 6 wk pp (5) Chronic hypertension affecting Status: Chronic Comment: IOL at 38 weeks. baseline labs nl. no meds. ?white coat syndrome, recommend weekly nst/justyn after 32 weeks, deliver by 38, growth q 4 weeks after 32; negative Pre E labs week of 09/10 (6) Supervision of high risk , antepartum Status: Acute Comment: PRR KALLIE 10/08/18 PC Mary Crane Remi Rell (7) Status: Acute Qualifiers: Comment: genetic, carrier, and ntd screening declined. anatomy scan normal (8) Pt. goes by Ashutosh Status: Acute Vaginal Delivery Maternal Presentation: Medically Indicated Induction 33-year-old G4, P3 at 38 weeks 2 days presents for induction of labor secondary to chronic hypertension Method of Induction: Pitocin, Landry Bulb Amniotic Membrane Rupture Type: Artificial Amniotic Fluid Description: Clear Final KALLIE: 10/08/18 Gestational age: 38 Weeks and 2 Days Date of Procedure: 09/26/18 Pre-Operative Diagnosis: iol chtn Post-Operative Diagnosis: same Surgery/ Procedure Performed: Spontaneous Vaginal Delivery Type of Anesthesia: Epidural Description of Procedure: Patient proceeded to complete dilation and began pushing. She only pushed through 2 contractions and the head delivered quickly in the SANTIAGO presentation. Nares and mouth were suctioned on the perineum. Gentle downward traction was applied to the head to deliver the anterior shoulder and the shoulders were noted to be presenting transversely compounded with the hand. With an additional push of spontaneous maternal expulsion there was natural restitution to the left shoulder being anterior followed by the posterior shoulder without complication the rest the delivered and was placed on the maternal abdomen. Delayed cord clamp was employed for approximately 90 seconds and the cord was clamped and cut. Placenta delivered spontaneously immediately following was noted be intact with three-vessel cord. No lacerations were noted EBL was 100 cc. Patient and tolerated delivery well. Presentation: SANTIAGO Placental Delivery Description: Spontaneous Placenta Disposition: [facility] Cord Vessel Description: 3 Vessels Cord Entanglement: None Estimated Blood Loss: 100 A gender: Male Episiotomy Description: None Laceration: None Medications given after delivery: IV Pitocin Complications: None
[2018-09-26] MEDS: Oxytocin 30 units/NS 500 ml 30 UNITS/500 ML IV.SOLN 167 UNITS IV (06:00)
[2018-09-26 09:30] VITALS: BP 139/92; PULSE 78; RESP 16; TEMP 36.3; O2SAT 97
[2018-09-26] MEDS: Naproxen 250 MG Tablet 500 MG PO ×2 (09:36→20:12)
--- NOTE | 2018-09-26 11:02 | NURSING ---
The delivery record states the patient's membranes were ruptured on 09/25/18 at 0143. After comparing documentation in [facility] and speaking with the patient, it has been confirmed that membranes were ruptured on 09/26/18 at 0143.
[2018-09-26 12:00] VITALS: BP 131/84; PULSE 76; RESP 14; TEMP 36.8; O2SAT 97
--- NOTE | 2018-09-26 13:40 | CASEMGMT ---
Social Work Assessment Labor and Delivery Unit Date of Referral: 09/26/2018 Time of Referral: 08 Referred By: Dr. Delgado Date of Intervention: 09/26/2018 Time of Intervention: 1340 Reason for Referral: maternal history of anxiety and depression History obtained from: Mother of baby (MOB) Elsy Whitman, father of baby (FOB) Rell Bardales, and medical records. Household composition: MOB, FOB, and 3 older children just moved into the finished basement of FOB's parents. Home situation is reported to be safe and adequate. Patient's parent/guardian status: MOB is 33 years old, involved with FOB for 9 years. The two now share 3 children together. MOB's oldest is from a different relationship. No indications of abuse, and upon nursing admission assessment MOB denies any form of abuse or safety concerns. Minor children in the home are: Rosa Maria (born 05.07.2007), Mary (born 03.24.2015), and Oren (born 12.16.2016). baby, Daniel Bardales, born on 09.26.2019 Medical History: MOB is G4, P3 to 4 after delivering Daniel. MOB with care starting at 8 weeks. MOB with hypertension during . Baby born at 38 weeks weighing8 pounds 15 ounces. Apgars 8 and 9 at 1 and 5 minutes of life. Educational Status: No issues with reading, writing, or learning comprehension. Financial Status: BRITTANIE is gainfully employed , works at a job where he is on 2 weeks and then off 2 weeks. Infant Supplies: MOB reports to have all needed baby supplies including safe sleep space and car seat. MOB is breast feeding. Childcare/Caregiver(s): MOB will be primary caregiver, with help from FOB when FOB is home. FOB's mother will be able to help out more now that the MOB and family are living with FOB's parents. Transportation: No issues. Programs/Agencies Involved: No agency involvement and denies need for any referrals. Behavioral Health Issues: Mental Health History: MOB with history of depression and anxiety. Reports some depression after first child, but did not know what was experiencing. MOB reports for the second child, MOB knew what was happening and go on medication right away. MOB reports no depression ora anxiety after the third. MOB reports should symptoms surface in this period will have no issue with seeking out help and support. Substance Use History: None reported or indicated. Family History: none reported. Drug Screens: none noted in the chart. Family/Social Stressors: Moved recently. FOB works 2 weeks on and off so MOB has limited help during those times. Support Systems: FOB and FOB's mother are identified as good supports. The hope is that moving in with family will provide MOB with additional support when FOB is away at work. MOB reports to feel to have a good support system. ASSESSMENT: MOB pleasant, receptive to social work visit, and open to discussing depression, risk factors, and importance of seeking out help and support. MOB reports would not have an issue asking for help if needed. MOB reports to feel to have needed support, to have supplies to care for baby and other children. MOB held good eye contact, mood and affect appropriate and congruent. MOB attentive to baby during social work visit, handled baby gently appropriately. MOB identified having loving feelings and connection to the baby. MOB accepting of [facility] resources/ depression packet fo home going. PLAN: MOB and baby to home at discharge with resources provided if needed in the future. At this time MOB denies need for any extra referrals. No other services requested or indicated. -FREEMAN Yeh, SPRAY OPERATOR
[2018-09-26 15:26] VITALS: BP 141/88; PULSE 70; RESP 14; TEMP 36.4; O2SAT 97
[2018-09-26] MEDS: Acetaminophen 500 MG Tablet 1000 MG PO (15:40)
[2018-09-26 19:30] VITALS: BP 155/80; PULSE 75; RESP 18; TEMP 36.3; O2SAT 97
[2018-09-27 00:30] VITALS: BP 136/86; PULSE 74; RESP 18; TEMP 36.1
[2018-09-27] MEDS: Acetaminophen 500 MG Tablet 1000 MG PO ×2 (00:36→08:38)
--- NOTE | 2018-09-27 06:56 | PCM.PN.OB ---
Subjective: doing well no complaints pain controlled no CP SOB N V ambulating well tolerating po lochia moderate, going well - Physical Exam General: Alert, Oriented x3 Vital Signs Temp Pulse Resp BP Pulse Ox 97.0 F L 74 18 136/86 H 97 09/27/18 00:30 09/27/18 00:30 09/27/18 00:30 09/27/18 00:30 09/26/18 19:30 Oxygen Delivery Method Room Air Weight: 209 lb Body Mass Index (BMI) 33.7 Intake and Output for Last 24 Hours 09/25/18 09/26/18 09/27/18 23:59 23:59 23:59 Intake Total 534 / 534 Output Total 2400 / 2400 Balance -1866 / -1866 Medical Necessity - Tobacco Use Smoking Status: Former smoker Assessment/Plan All Active Problems (Last Reviewed 09/21/18 @ 10:24 by Kerri Lott) Genital herpes (Acute) Thrombocytopenia affecting (Acute) Seasonal allergies (Acute) General counseling and advice on contraceptive management (Acute) Supervision of high risk , antepartum (Acute) (Acute) Pt. goes by Ashutosh (Acute) Epigastric pain (Resolved) Supervision of normal (Resolved) s/p PPD # 1 1. routine post delivery care 2. breast feeding- support given 3. rh positive 4. rubella immune
--- NOTE | 2018-09-27 06:57 | DCINST_ITS ---
Discharge Diet: No Restrictions Discharge Activity: Return to Normal Activity, May not drive while taking narcotic pain medications., May Shower May resume sexual activity in: 4-6 weeks Call your doctor if your incision/area has: Continuous Slow Oozing, Sudden Increased Bleeding, Increased Pain/ Swelling, Increased Redness, Foul Smelling Discharge Additional Instructions: If you experience any of the following, contact your healthcare provider. * Bleeding that soaks a pad every hour for 2 hours * Fever 100.4 or higher * Unrelieved incision or abdominal pain * Swelling, redness, discharge or bleeding from your incision or episiotomy site * Your incision begins to separate * Problems urinating (including inability to urinate or burning while urinating). * Visual changes * Severe headache * Flu-like symptoms * Pain or redness in one of both of your breasts * Pain, warmth, tenderness or swelling in your legs, especially the calf area * Frequent nausea and vomiting * Symptoms of depression or anxiety If you experience any of the following, call 911 or go to the nearest Emergency Room. * Chest pain * Problems breathing * Seizure activity * Partial or complete paralysis of a body part, slurred speech, weakness or drooping of the face, or a sudden inability to walk or hold your balance Allergies/Adverse Reactions: Allergies No Known Allergies Allergy (Verified 09/25/18 19:39) Medications to take at Discharge loratadine 10 mg tablet 10 mg PO DAILY PRN 03/02/18 vitamin,calcium,xtbmfvxp-dskd-epxhe acid tablet 1 tab PO DAILY 03/02/18 diphenhydramine 25 mg capsule 25 mg PO QHS PRN 08/03/18 Acetaminophen 1,000 mg PO Q8H 09/10/18 Valacyclovir HCl [Valacyclovir] 500 mg PO DAILY 09/25/18 Please Follow Up With: Erma Delgado MD - [phone] When: Call to make an appointment with your doctor in 6 weeks. If you had elevated Blood pressure or 4th degree laceration you will need to be seen in 2 weeks. Primary Care Physician: Care Physician,No Primary [Primary Care Provider] - Test Results: Test results from this visit will be discussed in further detail at your follow- up appointment, if applicable.
--- NOTE | 2018-09-27 06:57 | PCM.DCVAG ---
Discharge Diet: No Restrictions Discharge Activity: Return to Normal Activity, May not drive while taking narcotic pain medications., May Shower May resume sexual activity in: 4-6 weeks Call your doctor if your incision/area has: Continuous Slow Oozing, Sudden Increased Bleeding, Increased Pain/ Swelling, Increased Redness, Foul Smelling Discharge Additional Instructions: If you experience any of the following, contact your healthcare provider. Bleeding that soaks a pad every hour for 2 hours Fever 100.4 or higher Unrelieved incision or abdominal pain Swelling, redness, discharge or bleeding from your incision or episiotomy site Your incision begins to separate Problems urinating (including inability to urinate or burning while urinating). Visual changes Severe headache Flu-like symptoms Pain or redness in one of both of your breasts Pain, warmth, tenderness or swelling in your legs, especially the calf area Frequent nausea and vomiting Symptoms of depression or anxiety If you experience any of the following, call 911 or go to the nearest Emergency Room. Chest pain Problems breathing Seizure activity Partial or complete paralysis of a body part, slurred speech, weakness or drooping of the face, or a sudden inability to walk or hold your balance Allergies/Adverse Reactions: Allergies No Known Allergies Allergy (Verified 09/25/18 19:39) Medications to take at Discharge loratadine 10 mg tablet 10 mg PO DAILY PRN 03/02/18 vitamin,calcium,smscbywl-cpwq-qynyp acid tablet 1 tab PO DAILY 03/02/18 diphenhydramine 25 mg capsule 25 mg PO QHS PRN 08/03/18 Acetaminophen 1,000 mg PO Q8H 09/10/18 Valacyclovir HCl [Valacyclovir] 500 mg PO DAILY 09/25/18 Please Follow Up With: Erma Delgado MD - [phone] When: Call to make an appointment with your doctor in 6 weeks. If you had elevated Blood pressure or 4th degree laceration you will need to be seen in 2 weeks. Primary Care Physician: Care Physician,No Primary [Primary Care Provider] - Test Results: Test results from this visit will be discussed in further detail at your follow-up appointment, if applicable.
[2018-09-27 08:00] VITALS: BP 132/88; PULSE 77; RESP 16; TEMP 36.9
[2018-09-27 12:39] VITALS: BP 145/82; PULSE 83; RESP 16; TEMP 36.7
--- NOTE | 2018-10-04 19:12 | NURSING ---
No answer on follow up phone call , left voicemail.
== END 2018-09-27 13:10 | disposition home or self-care (01) | DRG 560 ==
PROVIDERS: Admitting Provider Obstetrics & Gynecology; Visit Provider Obstetrics & Gynecology
DX: O10.92 Unspecified pre-existing hypertension complicating childbirth (principal); Z3A.38 38 weeks gestation of pregnancy; Z37.0 Single live birth; A60.00 Herpesviral infection of urogenital system, unspecified; O98.32 Other infections with a predominantly sexual mode of transmission complicating childbirth; Z87.891 Personal history of nicotine dependence; D69.59 Other secondary thrombocytopenia; O99.12 Other diseases of the blood and blood-forming organs and certain disorders involving the immune mechanism complicating childbirth
CPT/HCPCS: 59025; 59050; 76816; 76819; 85025; 86850; 86900; 99218; J7120; G0378

== ENCOUNTER → 2018-12-06 13:49 | Outpatient (CLI) | payer MEDICAID, SELFPAY ==
[2018-11-30 10:09] VITALS: BMI 29.7
--- NOTE | 2018-12-06 13:51 | CT_ITS ---
STUDY: CT ABDOMEN WITHOUT CONTRAST REASON FOR EXAM: Female, 33 years old. Splenomegaly. RADIATION DOSAGE (If Supplied By Facility): CTDIvol = ( 12.44 ) mGy, DLP = ( 395.62 ) mGycm TECHNIQUE: Transaxial images were obtained without intravenous contrast, and oral contrast. Sagittal and coronal images were reconstructed. Individualized dose optimization techniques were used for this CT. COMPARISON: Ultrasound 07/31/2018 FINDINGS: The visualized lung bases are unremarkable. The visualized portions of the heart are within normal limits. Normal liver. Normal gallbladder and extrahepatic biliary system. Normal spleen. The spleen measures 12 cm in length which is the upper limits of normal. Normal pancreas. Normal bilateral adrenal glands. 2 mm nonobstructing stone in the midsection the right kidney. Normal left kidney. Normal visualized stomach. Normal small intestine. Normal colon. The appendix is visualized and appears normal. Normal abdominal aorta. Normal inferior vena cava. Normal retroperitoneum. There is a small umbilical hernia containing fat. Normal osseous structures. CT/Abdomen without IV Contrast IMPRESSION: 1. Interval resolution of splenomegaly with spleen at upper limits of normal. 2. 2 mm nonobstructing stone of the right kidney. Electronically Signed: Jamaal Ward MD at 17:05 EDT Tel , Service support ,
== END ==
PROVIDERS: Family Provider Internal Medicine; PCP Internal Medicine; Referring Provider Internal Medicine; Visit Provider Internal Medicine
DX: R16.1 Splenomegaly, not elsewhere classified (principal)
CPT/HCPCS: 74150

== ENCOUNTER → 2024-12-09 | Outpatient (CLI) | payer MEDICAID, SELFPAY ==
--- NOTE | 2024-12-09 13:00 | US_ITS ---
PROCEDURE: PELVIC W/ TRANSVAGINAL 12/09/2024 REASON FOR EXAM: IUD PLACEMENT IUD seen out of place on an x-ray at [facility] per patient. TECHNIQUE: Procedure Code: USPELTVAG Modality: US Procedure: PELVIC W/ TRANSVAGINAL COMPARISON: None FINDINGS: Measurements: Uterus: 10.2 x 7.8 x 5.8 with a volume of 240 mL Endometrial Thickness: 8 Right Ovary: 3.6 x 3.2 x 1.9 with a volume of 11.5 mL. Left Ovary: 3.2 x 3.1 x 2.4 with a volume of 12.1 mL. Uterus: The uterus is anteverted. Cervix appears unremarkable. Endometrium: There is an IUD identified in the endometrial canal. It is somewhat perpendicular to the endometrial canal. Endometrium is hyperechoic. Right ovary: Size, contour, and, echogenicity are within normal limits. There are no masses seen. There is blood flow within the ovary. Left ovary: Size, contour, and echogenicity are within normal limits. There are no masses seen. There is blood flow within the ovary. Other: There is a mild amount of free fluid within the cul-de-sac. The urinary bladder measures 8.7 x 5.2 x 4.1 cm. Urinary bladder measures 96.5 mL. US/Pelvic w/ Transvaginal IMPRESSION: The IUD is perpendicular to the endometrial canal. The uterus is anteverted. Normal appearance to both ovaries. Reading Location: [id number]
== END | disposition home or self-care (01) ==
LOC: US 12:59
PROVIDERS: Referring Provider Nurse Practitioner Women's Health; Visit Provider Nurse Practitioner Women's Health
DX: Z30.9 Encounter for contraceptive management, unspecified (principal)
CPT/HCPCS: 76830; 76856

== ENCOUNTER → 2024-12-17 | Outpatient (CLI) | payer MEDICAID, SELFPAY ==
[2024-12-23 10:08] LABS: HPV APTIMA, High Risk Negative (Negative)
== END | disposition home or self-care (01) ==
LOC: BWCLAB 11:51 → LABSPEC 11:51
PROVIDERS: Visit Provider Nurse Practitioner Women's Health
DX: Z12.4 Encounter for screening for malignant neoplasm of cervix (principal)
CPT/HCPCS: 87624; 88175; G0145

== ENCOUNTER → 2025-01-20 | Outpatient (CLI) | payer MEDICAID, SELFPAY ==
--- NOTE | 2025-01-20 12:52 | US_ITS ---
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 TECHNIQUE: Procedure Code: USPELTVAG Modality: US Procedure: PELVIC W/ TRANSVAGINAL COMPARISON: Pelvic ultrasound dated 12/09/2024 FINDINGS: Measurements: Uterus: 10.5 x 7.5 x 6.1 cm with a volume of 253 mL Endometrial Thickness: 3 mm Right Ovary: 3.1 x 2.0 x 1.6 with a volume of 5.2 mL. Left Ovary: 3.7 x 2.5 x 1.6 with a volume of 7.7 mL. Uterus: The uterus is anteverted. Size, contour, and echogenicity are within normal limits. There is an echogenic IUD identified in the endometrial canal in the fundal portion of the uterus in the midline. Endometrium: 3 mm. There is an echogenic IUD identified in the endometrial canal in the fundal portion of the uterus in the midline. Right ovary: Size, contour, and echogenicity are within normal limits. There is blood flow to the ovary. No ovarian masses are noted. Left ovary: Size, contour, and echogenicity are within normal limits. There is blood flow to the ovary. No ovarian masses are noted. Cul-de-sac: There is no free fluid in the cul-de-sac. Other: Urinary bladder measures 7.6 x 3.8 x 3.5 cm. Urinary bladder volume is 52 mL. Bladder wall appears unremarkable. There are no filling defects seen in the urinary bladder. US/Pelvic w/ Transvaginal IMPRESSION: There is an echogenic IUD identified in the endometrial canal in the fundal por tion of the uterus in the midline. Reading Location: [id number]
== END | disposition home or self-care (01) ==
LOC: US 12:52
PROVIDERS: Referring Provider Nurse Practitioner Women's Health; Visit Provider Nurse Practitioner Women's Health
DX: Z30.430 Encounter for insertion of intrauterine contraceptive device (principal)
CPT/HCPCS: 76830; 76856